=== PATIENT | male | born 1940 | race Caucasian/White ===

== ENCOUNTER 2016-03-28 | Outpatient (CLI) | payer MEDICARE, BC | END 2016-03-28 13:31 | disposition home or self-care (01) | DX: E11.8 Type 2 diabetes mellitus with unspecified complications (principal) ==

== ENCOUNTER 2016-04-09 | Emergency (ER) | payer MEDICARE, BC | END 2016-04-09 17:39 | disposition home or self-care (01) | PROC: 0WUF0JZ Supplement Abdominal Wall with Synthetic Substitute, Open Approach (ICD-10-PCS; principal; 2016-04-09) | CPT/HCPCS: 49585; 51702; 99282; 99283; A9270; C1781; J0131; J0690; J7120 ==

== ENCOUNTER 2016-04-09 06:14 | Day surgery (SDC) | payer MEDICARE, BC ==
[2016-04-09] MEDS ORDERED: ceFAZolin 2 GM/50 ML 50 ML IV ONE (06:27)
[2016-04-09] MEDS ORDERED: LACTATED RINGERS 1,000 ML IV ONE ×2 (07:02→09:20)
[2016-04-09] MEDS ORDERED: BUPIVACAINE 0.5% PF 30 ML VIAL SUBQ ONE ×2 (07:21→08:47)
[2016-04-09] MEDS ORDERED: GLYCOPYRROLATE 1 MG/5 ML VIAL IVP ONE (07:45)
[2016-04-09] MEDS ORDERED: NEOSTIGMINE 1 MG/1 ML 10 ML MDV IVP ONE (07:45)
[2016-04-09] MEDS ORDERED: ROCURONIUM 50 MG/5 ML VIAL IVP ONE (07:45)
[2016-04-09] MEDS ORDERED: LIDOCAINE-MPF 2% 5 ML VIAL IM ONE (07:45)
[2016-04-09] MEDS ORDERED: ACETAMINOPHEN 1,000 MG/100 ML VIAL IV ONE (07:45)
[2016-04-09] MEDS ORDERED: ONDANSETRON 4 MG/2 ML VIAL IVP ONE (07:45)
[2016-04-09] MEDS ORDERED: DEXAMETHASONE 4 MG/ML VIAL IVP ONE (07:45)
[2016-04-09] MEDS ORDERED: MIDAZOLAM 2 MG/2 ML VIAL IVP ONE (07:45)
[2016-04-09] MEDS ORDERED: fentaNYL 100 MCG/2 ML VIAL IVP ONE (07:45)
[2016-04-09] MEDS ORDERED: PROPOFOL 200 MG/20 ML VIAL IVP ONE (07:45)
[2016-04-09] MEDS: fentaNYL 100 MCG/2 ML VIAL ONE ×4 (09:28→09:48)
[2016-04-09] MEDS ORDERED: oxyCOD/ACETAMIN 5 MG/325 MG TABLET PO ONE ×2 (10:09→10:53)
== END 2016-04-09 06:15 | disposition home or self-care (01) ==
PROC: 0WUF0JZ Supplement Abdominal Wall with Synthetic Substitute, Open Approach (ICD-10-PCS; principal; 2016-04-09 07:30)
DX: K42.9 Umbilical hernia without obstruction or gangrene (principal); I48.91 Unspecified atrial fibrillation; E11.22 Type 2 diabetes mellitus with diabetic chronic kidney disease; I12.9 Hypertensive chronic kidney disease with stage 1 through stage 4 chronic kidney disease, or unspecified chronic kidney disease; N18.3 Chronic kidney disease, stage 3 (moderate); G47.30 Sleep apnea, unspecified
CPT/HCPCS: 49585; A9270; C1781; J0131; J0690; J7120

== ENCOUNTER 2016-04-24 14:41 | Outpatient (CLI) | payer MEDICARE, BC | END 2016-04-24 14:42 | disposition home or self-care (01) | DX: G47.33 Obstructive sleep apnea (adult) (pediatric) (principal) | CPT/HCPCS: 99214; G0463 ==

== ENCOUNTER 2017-03-18 12:00 | Outpatient (CLI) | payer MEDICARE, BC | END 2017-03-18 12:01 | disposition home or self-care (01) | LOC: LAB.WCP 12:00 | PROVIDERS: ATTEND Family Medicine | DX: Z12.5 Encounter for screening for malignant neoplasm of prostate (principal) | CPT/HCPCS: 36415; G0103; 84153 ==

== ENCOUNTER 2017-03-24 07:30 | Outpatient (CLI) | payer MEDICARE, BC ==
--- NOTE | 2017-03-24 09:49 | Ultrasound Report ---
DATE OF SERVICE: 03/24/2017 COMPLETE ABDOMINAL ULTRASOUND: 03/24/2017 CLINICAL INDICATION: Abnormal LFTs. TECHNIQUE: Real-time scanning was performed with sales representatives static images obtained. FINDINGS: The liver measures 15.7 cm. Hepatic echogenicity is increased, compatible with fatty infiltration. No focal parenchymal lesion or intrahepatic biliary dilatation is present. The common bile duct measures 7 mm. The gallbladder is normal, as is the visualized pancreas. The right kidney measures 11.6 cm, and demonstrates a 4.3 cm cyst in the upper pole. The left kidney measures 10.6 cm, and is unremarkable. The spleen measures 11.6 cm, and demonstrates normal echotexture. The abdominal aorta is normal in caliber. The inferior vena cava is unremarkable. No free fluid is present. IMPRESSION: FATTY INFILTRATION OF THE LIVER. NO EVIDENCE OF CHOLELITHIASIS OR BILIARY DILATATION. TD: 03/24/2017 10:49
== END 2017-03-24 07:31 | disposition home or self-care (01) ==
LOC: DI 07:30
PROVIDERS: ATTEND Internal Medicine Endocrinology, Diabetes & Metabolism
DX: K76.0 Fatty (change of) liver, not elsewhere classified (principal)
CPT/HCPCS: 76700

== ENCOUNTER 2017-04-29 13:37 | Outpatient (CLI) | payer MEDICARE, BC | END 2017-04-29 13:38 | disposition home or self-care (01) | LOC: SC 13:37 | PROVIDERS: ATTEND Nurse Practitioner Family | DX: G47.33 Obstructive sleep apnea (adult) (pediatric) (principal) | CPT/HCPCS: 99213; G0463; 99212 ==

== ENCOUNTER 2017-05-12 08:00 | Outpatient (CLI) | payer MEDICARE, BC | END 2017-05-12 08:01 | disposition home or self-care (01) | LOC: LAB.WCP 08:00 | PROVIDERS: ATTEND Urology | DX: R97.20 Elevated prostate specific antigen [PSA] (principal) | CPT/HCPCS: 36415; 84153 ==

== ENCOUNTER 2017-09-17 13:20 | Outpatient (CLI) | payer MEDICARE, BC ==
[2017-09-17 18:59] LABS: HGB - HEMOGLOBIN 12.3 g/dL (14.0-18.0); MEAN CORPUSCULAR HEMOGLOBIN 30.2 pg (27.0-31.0); MEAN CORPUSCULAR HGB CONC 33.2 g/dL (32.0-36.0); MEAN PLATELET VOLUME 10.4 fL (7.4-11.4); RED BLOOD COUNT 4.07 10^6/uL (4.70-6.10); WHITE BLOOD COUNT 5.2 x10^3/uL (4.8-10.8)
[2017-09-17 19:40] LABS: CREATININE,URINE 115.7 mg/dL; PROTEIN/CREATININE RATIO,URINE 0.1 (<=0.2)
== END 2017-09-17 13:21 | disposition home or self-care (01) ==
LOC: LAB.WCP 13:20
PROVIDERS: ATTEND Internal Medicine Nephrology
DX: D70.9 Neutropenia, unspecified (principal); R80.9 Proteinuria, unspecified; D63.1 Anemia in chronic kidney disease
CPT/HCPCS: 36415; 82570; 84156; 85027

== ENCOUNTER 2017-11-14 08:00 | Outpatient (CLI) | payer MEDICARE, BC | END 2017-11-14 08:01 | disposition home or self-care (01) | LOC: LAB.WCP 08:00 | PROVIDERS: ATTEND Urology | DX: C61 Malignant neoplasm of prostate (principal) | CPT/HCPCS: 36415; 84153 ==

== ENCOUNTER 2017-11-20 08:00 | Outpatient (CLI) | payer MEDICARE, BC ==
[2017-11-20 12:58] LABS: CALCIUM 9.2 mg/dL (8.5-10.3); CREATININE 1.4 mg/dL (0.6-1.2)
== END 2017-11-20 08:01 | disposition home or self-care (01) ==
LOC: LAB.WCP 08:00
PROVIDERS: ATTEND Internal Medicine Nephrology
DX: I50.32 Chronic diastolic (congestive) heart failure (principal); N05.9 Unspecified nephritic syndrome with unspecified morphologic changes
CPT/HCPCS: 36415; 80048; 83880

== ENCOUNTER 2017-12-11 10:18 | Outpatient (CLI) | payer MEDICARE, BC ==
[2017-12-11 13:09] LABS: CALCIUM 8.8 mg/dL (8.5-10.3); CREATININE 1.3 mg/dL (0.6-1.2)
== END 2017-12-11 10:19 | disposition home or self-care (01) ==
LOC: LAB.WCP 10:18
PROVIDERS: ATTEND Family Medicine
DX: I12.9 Hypertensive chronic kidney disease with stage 1 through stage 4 chronic kidney disease, or unspecified chronic kidney disease (principal); N18.3 Chronic kidney disease, stage 3 (moderate)
CPT/HCPCS: 36415; 80048

== ENCOUNTER 2017-12-18 09:46 | Outpatient (CLI) | payer MEDICARE, BC ==
--- NOTE | 2017-12-18 15:30 | Ultrasound Report ---
Reason: BLADDER OUTLET NECK OBSTRUCTION,ACUTE KIDNEY FAIL Procedure Date: 12/18/2017 Accession Number: [id number] / [id number] Procedure: US - Retroperitoneal CPT Code: FULL RESULT: EXAM: RENAL ULTRASOUND EXAM DATE: 12/18/2017 12:05 PM. CLINICAL HISTORY: Bladder outlet neck obstruction, acute kidney failure. COMPARISON: LUMBAR SPINE W/WO 12/18/2017 10:07 AM. TECHNIQUE: Real-time scanning was performed with static images obtained. FINDINGS: Right Kidney: 10.6 cm. Normal echotexture with no stones, contour-deforming solid masses, or hydronephrosis. Note is made of a simple cyst measuring up to 5 cm, no followup required. Left Kidney: 11.7 cm. Normal echotexture with no stones, contour-deforming masses, or hydronephrosis. Bladder: Bilateral jets seen. The prevoid bladder volume was 400 cc. The postvoid bladder volume was 30 cc. Bladder wall appears subjectively thickened. Other: The enlarged prostate is seen indenting the bladder and measures at least 6.5 x 6.3 x 5.1 cm. IMPRESSION: Prostatic hypertrophy and preserved jets compatible with bladder outlet obstruction with postvoid residual suggestive of effective active micturition. RADIA
== END 2017-12-18 09:47 | disposition home or self-care (01) ==
LOC: DI 09:46
PROVIDERS: ATTEND Internal Medicine Nephrology
DX: N32.0 Bladder-neck obstruction (principal); N17.9 Acute kidney failure, unspecified; N40.0 Benign prostatic hyperplasia without lower urinary tract symptoms
CPT/HCPCS: 76770

== ENCOUNTER 2017-12-18 09:48 | Outpatient (CLI) | payer MEDICARE, BC ==
[2017-12-18] MEDS ORDERED: GADOBUTROL 10 MMOL/10 ML VIAL ONE (10:01)
[2017-12-18] MEDS ORDERED: GADOBUTROL 10 MMOL/10 ML VIAL IVP ONE (10:28)
--- NOTE | 2017-12-18 22:08 | MRI Report ---
Reason: SCIATICA, RIGHT Procedure Date: 12/18/2017 Accession Number: [id number] / [id number] Procedure: MRI - Lumbar Spine W/WO CPT Code: FULL RESULT: EXAM: MRI LUMBAR SPINE WITHOUT AND WITH CONTRAST. EXAM DATE: 12/18/2017 10:53 AM. CLINICAL HISTORY: Sciatica, right. COMPARISONS: None. TECHNIQUE: Multiplanar, multisequence T1-weighted and fluid-sensitive sequences of the lumbar spine from T12 to S1 before and after administration of intravenous contrast. Other: None. IV contrast: 9 mL Gadavist. FINDINGS: There is straightening of the normal lumbar lordosis. There is endplate spondylosis demonstrated throughout the visualized portions of the thoracic and lumbar spine. The conus terminates at the inferior endplate level of L1. There is a mild decrease in the height of the disk at T9-T10, T10-T11, T11-T12, T12-L1, mild to moderate at L1-L2, moderate at L2-L3, mild to moderate at L3-L4 and L4-L5. There is diffuse desiccation of the disk spaces throughout the visualized portions of the thoracic and lumbar spine. There are multiple disk bulges or disk osteophyte complexes which will be described in greater detail below. There is no significant atrophy of the paraspinal musculature or the psoas musculature. The abdominal aorta is of normal caliber. The kidneys are without evidence of hydronephrosis. L1-L2: There is a small disk osteophyte complex producing a mild central canal stenosis. The facets are normal. There is mild neural foraminal narrowing bilaterally. L2-L3: There is a small disk osteophyte complex producing a mild central canal stenosis. There is mild bilateral facet arthropathy. There is mild to moderate right and left foraminal stenosis. L3-L4: There is a small disk osteophyte complex abutting the sac producing a mild central canal stenosis. There is mild ligamentum flavum hypertrophy. There is minimal facet arthropathy. There is mild to moderate neural foraminal narrowing bilaterally. L4-L5: There is a broad-based disk osteophyte complex abutting the sac. There is mild ligamentum flavum hypertrophy. There is a moderate central canal stenosis. There is moderate right and left foraminal stenosis. There is mild bilateral facet arthropathy. L5-S1: There is a minimal disk bulge abutting the sac without significant central canal stenosis. There is mild left and right facet arthropathy. There is no significant foraminal stenosis. The postcontrast T1-weighted images are normal. IMPRESSION: 1. There are mild central canal stenoses from small disk osteophyte complexes at L1-L2 and L2-L3. 2. There is a mild central canal stenosis from a small disk osteophyte complex at L3-L4. 3. There is a moderate central canal stenosis from a broad-based disk osteophyte complex at L4-L5 in combination with ligamentum flavum hypertrophy. 4. There is a minimal disk bulge without significant central canal stenosis at L5-S1. Comment: The following findings are so common in adults without low back pain that while we report their presence, they must be interpreted with caution and in the context of the clinical situation. (Reference Sameerak et al, Spine 2001) Prevalence of findings in patients without low back pain: Disk degeneration (any evidence): 92% Disk desiccation/T2 signal loss: 83% Disk height loss: 56% Disk bulge: 64% Disk protrusion: 32% Annular tear/high intensity zone: 38% RADIA
== END 2017-12-18 09:49 | disposition home or self-care (01) ==
LOC: DI 09:48
PROVIDERS: ATTEND Internal Medicine Endocrinology, Diabetes & Metabolism
DX: M51.16 Intervertebral disc disorders with radiculopathy, lumbar region (principal); M48.061 Spinal stenosis, lumbar region without neurogenic claudication; M25.78 Osteophyte, vertebrae; N32.0 Bladder-neck obstruction; N17.9 Acute kidney failure, unspecified; N40.0 Benign prostatic hyperplasia without lower urinary tract symptoms
CPT/HCPCS: 72158; 76770; A9585

== ENCOUNTER 2018-01-08 08:00 | Outpatient (CLI) | payer MEDICARE, BC ==
[2018-01-08 12:52] LABS: CALCIUM 9.5 mg/dL (8.5-10.3); CREATININE 1.3 mg/dL (0.6-1.2)
== END 2018-01-08 23:59 | disposition home or self-care (01) ==
LOC: LAB.WCP 08:00
PROVIDERS: ATTEND Internal Medicine Nephrology
DX: N05.9 Unspecified nephritic syndrome with unspecified morphologic changes (principal); I50.32 Chronic diastolic (congestive) heart failure
CPT/HCPCS: 36415; 80048; 83880

== ENCOUNTER 2018-04-03 08:00 | Outpatient (CLI) | payer MEDICARE, BC ==
[2018-04-03 13:38] LABS: BASOPHILS % (AUTO) 0.6 %; EOSINOPHILS # (AUTO) 0.1 10^3/uL (0.0-0.7); EOSINOPHILS % (AUTO) 3.2 %; HGB - HEMOGLOBIN 12.6 g/dL (14.0-18.0); LYMPHOCYTES # (AUTO) 0.8 10^3/uL (1.5-3.5); LYMPHOCYTES % (AUTO) 17.7 %; MEAN CORPUSCULAR HEMOGLOBIN 31.1 pg (27.0-31.0); MEAN CORPUSCULAR HGB CONC 34.7 g/dL (32.0-36.0); MEAN CORPUSCULAR VOLUME 89.8 fL (80.0-94.0); MEAN PLATELET VOLUME 9.8 fL (7.4-11.4); MONOCYTES # (AUTO) 0.4 10^3/uL (0.0-1.0); NEUTROPHILS % (AUTO) 68.5 %; PLT - PLATELET COUNT 141 10^3/uL (130-450); RED BLOOD COUNT 4.04 10^6/uL (4.70-6.10); RED CELL DISTRIBUTION WIDTH 14.7 % (12.0-15.0); WHITE BLOOD COUNT 4.4 x10^3/uL (4.8-10.8)
[2018-04-03 14:01] LABS: ALBUMIN 4.2 g/dL (3.2-5.5); ALBUMIN/GLOBULIN RATIO 1.7 (1.0-2.2); ALKALINE PHOSPHATASE 45 IU/L (42-121); ALT ALANINE AMINOTRANSFERASE 19 IU/L (10-60); AST ASPARTATE AMINOTRANSFERASE 37 IU/L (10-42); BILIRUBIN,TOTAL 0.6 mg/dL (0.2-1.0); BUN - BLOOD UREA NITROGEN 26 mg/dL (6-20); CALCIUM 9.2 mg/dL (8.5-10.3); CARBON DIOXIDE - CO2 26 mmol/L (21-32); CHLORIDE 104 mmol/L (101-111); CHOL/HDL RATIO 2.3 (<5.0); CHOLESTEROL 162 mg/dL; CREATININE 1.2 mg/dL (0.6-1.2); GFR - MDRD 59 (>89); GLUCOSE 114 mg/dL (70-100); HDL CHOLESTEROL 70 mg/dL; LDL CHOLESTEROL,CALCULATED 80 mg/dL; LDL/HDL RATIO 1.1 (<3.6); SODIUM 136 mmol/L (135-145); TOTAL PROTEIN 6.7 g/dL (6.7-8.2); VLDL CHOLESTEROL 12 mg/dL
[2018-04-03 14:30] LABS: FREE T4 (FREE THYROXINE) 0.8 ng/dL (0.58-1.64)
[2018-04-03 20:22] LABS: HB2 TOTAL 12.8 g/dL; HEMOGLOBIN A1C 0.62 g/dL; HEMOGLOBIN A1C % 6.6 % (4.6-6.2)
== END 2018-04-03 23:59 | disposition home or self-care (01) ==
LOC: LAB.WCP 08:00
PROVIDERS: ATTEND Family Medicine
DX: E78.5 Hyperlipidemia, unspecified (principal); E10.9 Type 1 diabetes mellitus without complications; E03.9 Hypothyroidism, unspecified; D64.9 Anemia, unspecified
CPT/HCPCS: 36415; 80053; 80061; 83036; 83721; 84439; 84443; 85025

== ENCOUNTER 2018-04-09 08:00 | Outpatient (CLI) | payer MEDICARE, BC ==
[2018-04-09 13:44] LABS: FREE T4 (FREE THYROXINE) 0.88 ng/dL (0.58-1.64)
== END 2018-04-09 23:59 | disposition home or self-care (01) ==
LOC: LAB.WCP 08:00
PROVIDERS: ATTEND Family Medicine
DX: E03.9 Hypothyroidism, unspecified (principal)
CPT/HCPCS: 36415; 84439; 84443

== ENCOUNTER 2018-04-29 15:12 | Outpatient (CLI) | payer MEDICARE, BC | END 2018-04-29 15:13 | disposition home or self-care (01) | LOC: SC 15:12 | PROVIDERS: ATTEND Nurse Practitioner Family | DX: G47.33 Obstructive sleep apnea (adult) (pediatric) (principal) | CPT/HCPCS: 99214; G0463; 99212 ==

== ENCOUNTER 2018-07-27 08:00 | Outpatient (CLI) | payer MEDICARE, BC | END 2018-07-27 08:01 | disposition home or self-care (01) | LOC: LAB.WCP 08:00 | PROVIDERS: ATTEND Urology | DX: Z85.46 Personal history of malignant neoplasm of prostate (principal) | CPT/HCPCS: 36415; 84153 ==

== ENCOUNTER 2018-09-04 08:00 | Outpatient (CLI) | payer MEDICARE, BC ==
[2018-09-04 13:05] LABS: CALCIUM 8.7 mg/dL (8.5-10.3); CREATININE 1.3 mg/dL (0.6-1.2)
== END 2018-09-04 08:01 | disposition home or self-care (01) ==
LOC: LAB.WCP 08:00
PROVIDERS: ATTEND Internal Medicine Nephrology
DX: N05.9 Unspecified nephritic syndrome with unspecified morphologic changes (principal); I50.32 Chronic diastolic (congestive) heart failure
CPT/HCPCS: 36415; 80048; 83880

== ENCOUNTER 2019-02-01 17:56 | Outpatient (CLI) | payer MEDICARE, BC ==
--- NOTE | 2019-02-01 18:46 | Ultrasound Report ---
Reason: LEFT LEG EDEMA Procedure Date: 02/01/2019 Accession Number: [id number] / [id number] Procedure: US - Duplex Ext Veins Left CPT Code: Addended Final Report FULL RESULT: EXAM: LEFT LOWER EXTREMITY VENOUS ULTRASOUND EXAM DATE: 02/01/2019 06:28 PM. CLINICAL HISTORY: LEFT LEG EDEMA. COMPARISON: None. TECHNIQUE: Real-time sonographic vascular imaging was performed by the employment agency manager through the lower extremity utilizing both color-flow and Doppler spectral analysis. Multiple loan representative static images were saved for review. FINDINGS: Common Femoral Vein (CFV): Normal. CFV-GSV Junction: Normal. Profunda Femoral Vein (PFV): Normal. Femoral Vein (FV) Prox: Normal. Femoral Vein (FV) Mid: Normal. Femoral Vein (FV) Dist: Normal. Popliteal Vein: Normal. Posterior Tibial Veins: Normal. Peroneal Veins: Normal. IMPRESSION: No evidence for deep venous thrombosis. RADIA The call report notification system was initiated by Dr. Juan Henry at 06:45 PM on 02/01/2019. ADDENDUM: 02/01/19 18:48 The above call report findings were discussed with MAHESH Hagen by Dr. Juan Henry at 06:48 PM on 02/01/2019.
== END 2019-02-01 17:57 | disposition home or self-care (01) ==
LOC: DI 17:56
PROVIDERS: ATTEND Physician Assistant
DX: R60.0 Localized edema (principal)

== ENCOUNTER 2019-02-07 14:20 | Outpatient (CLI) | payer MEDICARE, BC | END 2019-02-07 23:59 | disposition home or self-care (01) | LOC: LAB.R 14:20 | DX: R19.7 Diarrhea, unspecified (principal) | CPT/HCPCS: 87045; 87046; 87493 ==

== ENCOUNTER 2019-02-08 08:00 | Outpatient (CLI) | payer MEDICARE, BC ==
[2019-02-08 19:14] LABS: BASOPHILS % (AUTO) 0.2 %; EOSINOPHILS # (AUTO) 0.1 10^3/uL (0.0-0.7); EOSINOPHILS % (AUTO) 2.1 %; HGB - HEMOGLOBIN 9.7 g/dL (14.0-18.0); LYMPHOCYTES # (AUTO) 0.6 10^3/uL (1.5-3.5); LYMPHOCYTES % (AUTO) 10.6 %; MEAN CORPUSCULAR HEMOGLOBIN 29.8 pg (27.0-31.0); MEAN CORPUSCULAR HGB CONC 30.8 g/dL (32.0-36.0); MEAN CORPUSCULAR VOLUME 96.6 fL (80.0-94.0); MEAN PLATELET VOLUME 11.5 fL (7.4-11.4); MONOCYTES # (AUTO) 0.4 10^3/uL (0.0-1.0); MONOCYTES % (AUTO) 7.2 %; NEUTROPHILS # (AUTO) 4.2 10^3/uL (1.5-6.6); NEUTROPHILS % (AUTO) 79.3 %; PLT - PLATELET COUNT 173 10^3/uL (130-450); RED BLOOD COUNT 3.26 10^6/uL (4.70-6.10); RED CELL DISTRIBUTION WIDTH 14.3 % (12.0-15.0); WHITE BLOOD COUNT 5.3 x10^3/uL (4.8-10.8)
[2019-02-08 19:44] LABS: ALBUMIN 3.8 g/dL (3.2-5.5); ALBUMIN/GLOBULIN RATIO 1.2 (1.0-2.2); BILIRUBIN,TOTAL 0.5 mg/dL (0.2-1.0); CALCIUM 9.2 mg/dL (8.5-10.3); CREATININE 1.3 mg/dL (0.6-1.2); TOTAL PROTEIN 7.1 g/dL (6.7-8.2)
[2019-02-08 21:00] LABS: FREE T4 (FREE THYROXINE) 0.71 ng/dL (0.58-1.64)
== END 2019-02-08 23:59 | disposition home or self-care (01) ==
LOC: LAB.WCP 08:00
PROVIDERS: ATTEND Physician Assistant
DX: I10 Essential (primary) hypertension (principal); E03.9 Hypothyroidism, unspecified; E10.9 Type 1 diabetes mellitus without complications
CPT/HCPCS: 36415; 80053; 84439; 84443; 85025; 85651

== ENCOUNTER 2019-02-09 12:54 | Outpatient (CLI) | payer MEDICARE, BC ==
--- NOTE | 2019-02-09 15:24 | Ultrasound Report ---
Reason: LT ACHILLES TENDINITIS Procedure Date: 02/09/2019 Accession Number: [id number] / [id number] Procedure: US - Ext Limited Non Vascular CPT Code: Final Report FULL RESULT: EXAM: EXTREMITY ULTRASOUND, NONVASCULAR EXAM DATE: 02/09/2019 02:38 PM. CLINICAL HISTORY: Acute onset left calf pain and swelling. COMPARISON: None. TECHNIQUE: Real-time scanning was performed with static images obtained. FINDINGS: Moderate diffuse soft tissue swelling and skin thickening is present in the left lower extremity. The Achilles tendon is visualized in full extent. The tendon is homogeneous in echotexture and normal in caliber. There is no apparent disruption. There is no focal enlargement or neovascularity. IMPRESSION: 1. No sonographic features of Achilles tendon rupture or tendinopathy. 2. Diffuse calf edema and skin thickening. RADIA The call report notification system was initiated by Dr. Mya Dye at 03:23 PM on 02/09/2019.
== END 2019-02-09 12:55 | disposition home or self-care (01) ==
LOC: DI 12:54
PROVIDERS: ATTEND Physician Assistant
DX: M76.62 Achilles tendinitis, left leg (principal); R60.0 Localized edema
CPT/HCPCS: 76882

== ENCOUNTER 2019-02-10 08:00 | Outpatient (CLI) | payer MEDICARE, BC | END 2019-02-10 23:59 | disposition home or self-care (01) | LOC: LAB.R 08:00 | PROVIDERS: ATTEND Physician Assistant | DX: R19.7 Diarrhea, unspecified (principal) | CPT/HCPCS: 87045; 87046; 87177; 87209 ==

== ENCOUNTER 2019-04-27 08:31 | Outpatient (CLI) | payer MEDICARE, BC ==
--- NOTE | 2019-04-27 09:39 | SLEEP CARE CONSULTATION ---
Information from patient questionnaire entered by Philomena Galloway. I have reviewed and concur with the information entered by Philomena Galloway. This document represents the service I personally performed and the decisions made by me, Shilpa Victor, RN, MSN, HEARING AID ASSEMBLY SUPERVISOR. History of Present Illness Previous diagnosis: Moderate, Obstructive Sleep Apnea-Hypopnea Syndrome AHI: 21 Reason for follow up: annual (last seen 2019) Equipment type: CPAP Equipment obtained from: [facility] Mask style: Nasal (Air fit N20) Mask brand: Resmed Backup mask available: Yes (old mask ) Last cushion change: 8 months CPAP Compliance Data - Data Reviewed with Patient Average duration of nightly device use: 7.25 Compliance rate %: 95.6 (180 days) Current pressure setting (cmH2O): 10-12 Humidity settin Heated hose settin Average residual AHI: 3.3 Average large leak: 11 sec Subjective Patient concerns: reports: mask discomfort ("Hates'" mask due to discomfort and eye leaks ), air blowing in eyes (intermittently - no eye irritation at this time. ), dry mouth, nose, throat (nose dryness occasionally - none now - but usually present in colder weather ), epistaxis (occasionally - last time with cold the past month ), other (spouse notices gurgling noise occasionally when he is supine only ). denies: aerophagia, mask leak noise, condensation in mask/hose, nasal congestion Observed to snore while using device: No On therapy, patient: reports: sleeping better, awakening more refreshed, being more awake and alert during the day, more rested overall (except extra fatigue due to radiation treatments) Initial Gove Sleepiness Scale score: 7 Current Gove Sleepiness Scale score: 13 Allergies and Home Medications Known drug allergies: Yes Home medication list reviewed: Yes Allergy and home medication list: Medication List Medication Name (generic/name brand) Strength & Dosage Hydralazine HCL 50mg tab one three times daily Zocor (Simvastatin) 20mg tab one daily at bedtime Tamsulosin HCL 0.4mg cap one daily Humalog 100 unit/ml SQ Solution Use with insulin pump Aricept (Donepezil Hydrochloride) 10mg tab one daily at bedtime Levothyroxine Sodium 125 mcg tab one daily Hyzaar (Losartan Potassium-HCTZ) 100-25mg tab one every morning Prazosin HCL 2mg cap two twice daily Metanx (W-Peqiadjrgfns-Qjbzj-B12-B6) 3-90.314-2-35mg cap two daily Aspirin 81mg tab one daily Omeprazole DR 40mg cap one daily Ceterizine (Zyrtec) 10mg tab one daily Vitamin D3 1000IU tab one daily Multivitamin Cap one daily Grape Seed and Reveratrol 235mg tab one up to four times daily, prn Vitamin E 1000IU cap 1 am and 1 pm Allergy List Flagyl Zestril (Lisinopril) Penicillin G Potassium Guiafenesin Review of Systems Review of systems same as previous: No (Radiation for prostrate cancer Nov / Dec with notable increase in fatigue) Physical Exam Blood Pressure: 140/50 Cuff size: long Heart Rate: 78 O2 Saturation: 97 Height: 5 ft 7 in Weight: 194 lb Weight change since last visit: none Body Mass Index: 30.4 BMI Classification: Obese Impression and Plan 1. Obstructive Sleep Apnea-Hypopnea Syndrome, moderate, with good treatment compliance and good apnea control. On CPAP therapy, the patient has better sleep quality and is more rested overall but has had increase in fatigue since radiation treatment for prostate cancer. Questions about supplies and replacement were answered. In addition, I gave patient a copy of the CPAP supply replacement schedule and discussed rationale for updating equipment. He is going down to [facility] today after this visit to order in person due to problems with their automotive system. For patient supply concerns. Patient was notified that another DME can be used if desired and unable to work out concerns with present DME. I will have my bereavement program coordinator inform of DME options. A DWO prescription will then be made if he decides to transfer. Patient advised to contact this office if further supply problems. His mask leaks could be due to old cushion, if still present after updating cushion, a mask refitting will be ordered. The mask leaks are present whether on his side or supine per patient. Mask leaks predominately from when patient sleeps on their side can be reduced by using a CPAP pillow. A CPAP pillow sample was shown. This and other styles can be bought online. A cloth eye mask can also be used to protect eyes until mask is no longer leaking to prevent eye irritation. Nasal dryness from colder chip drier weather can be reduced with increasing the CPAP humidity as shown on sample device and the heated hose can be increased if condensation. In addition, he can use saline nasal spray a few times a day when dryness symptoms such as after meal and before bedtime. To reduce possible apnea noted in supine position, I will change his autoCPAP range to [id number]. He is to contact me if symptoms not resolved or pressure not comfortable. Patient's apnea severity and rationale for treatment to reduce apnea, improve sleep quality and reduce cardiovascular and cerebrovascular events was reviewed. I also reviewed the benefit of consistent device use of CPAP for his hypertension, diabetes,gastric reflux. Patient states his diabetes is now brittle and now using continuous monitoring. He took his blood sugar reading during this visit and was low at 64 so ate a snack which he keeps in his monica pack carries during office visit. * Change CPAP pressure to 11-15 cmH2O * Implement methods to reduce mask leaks and nasal dryness. * Contact this office if continued suppy problems * Notify me if snoring with mask or feeling that the pressure is too much or too little * Attempt to lose weight * Call this office if any problems using CPAP * Return for follow up in 1 year , or sooner if concerns arise Time Spent with Patient (minutes): 40 I spent 100% of this visit face to face with the patient with greater than 50% of this was spent time counseling the patient and coordination of care.
[2019-04-27 09:40] VITALS: BP 140/50
== END 2019-04-27 08:32 | disposition home or self-care (01) ==
LOC: SC 08:31
PROVIDERS: ATTEND Nurse Practitioner Family
DX: G47.33 Obstructive sleep apnea (adult) (pediatric) (principal); E66.9 Obesity, unspecified; Z68.30 Body mass index [BMI] 30.0-30.9, adult
CPT/HCPCS: 99215; G0463; 99212

== ENCOUNTER 2019-08-31 15:06 | Outpatient (CLI) | payer MEDICARE, BC ==
--- NOTE | 2019-08-31 17:39 | XRAY Report ---
Reason: BILATERAL HAND PAIN Procedure Date: 08/31/2019 Accession Number: [id number] / [id number] Procedure: WCP - Hand 2 View BILAT CPT Code: Final Report FULL RESULT: PROCEDURE: Hand 2 View BILAT INDICATIONS: BILATERAL HAND PAIN TECHNIQUE: 3 views of the hand(s) acquired. COMPARISON: None FINDINGS: Bones: No fractures or dislocations. No suspicious bony lesions. The scattered areas of periarticular osteophytes are present. Periarticular lucencies are present at multiple digits of the PIP and DIP joints. The left hand also demonstrates areas of moderate IP degenerative narrowing. Multiple periarticular lucencies are present at the PIP and DIP joints. Small areas of IP subluxation are noted at the third DIP joint. Right hand demonstrates moderate scattered areas of IP degenerative narrowing Soft tissues: No suspicious soft tissue calcifications. IMPRESSION: Multiple areas of IP degenerative narrowing as well as areas of subchondral lucency raising concern for erosion. Recommend correlation to laboratory values as erosive arthritides cannot be excluded. Reviewed by: Keri Mina MD on 08/31/2019 5:37 PM PDT Approved by: Keri Mina MD on 08/31/2019 5:37 PM PDT Station ID: [id number]
[2019-08-31 18:29] LABS: MEAN CORPUSCULAR HEMOGLOBIN 28.9 pg (27.0-31.0); MEAN CORPUSCULAR HGB CONC 31.3 g/dL (32.0-36.0); MEAN CORPUSCULAR VOLUME 92.6 fL (80.0-94.0); MEAN PLATELET VOLUME 11.9 fL (7.4-11.4); RED BLOOD COUNT 3.11 10^6/uL (4.70-6.10); RED CELL DISTRIBUTION WIDTH 13.9 % (12.0-15.0); WHITE BLOOD COUNT 4.8 x10^3/uL (4.8-10.8)
[2019-08-31 19:00] LABS: URIC ACID 4.8 mg/dL (2.6-7.2)
[2019-08-31 19:02] LABS: RHEUMATOID FACTOR NEGATIVE (Negative)
[2019-08-31 19:11] LABS: CRP - C-REACTIVE PROTEIN < 1.0 mg/dL (0-1.0)
== END 2019-08-31 23:59 | disposition home or self-care (01) ==
LOC: DI.WCP 15:06
PROVIDERS: ATTEND Nurse Practitioner Family
DX: M19.041 Primary osteoarthritis, right hand (principal); M19.042 Primary osteoarthritis, left hand; M25.541 Pain in joints of right hand; M25.542 Pain in joints of left hand
CPT/HCPCS: 36415; 84550; 85027; 85651; 86038; 86140; 86200; 86430

== ENCOUNTER 2019-09-03 09:43 | Outpatient (CLI) | payer MEDICARE, BC ==
[2019-09-03 12:19] LABS: BASOPHILS % (AUTO) 0.2 %; EOSINOPHILS # (AUTO) 0.1 10^3/uL (0.0-0.7); EOSINOPHILS % (AUTO) 3.5 %; HGB - HEMOGLOBIN 9.1 g/dL (14.0-18.0); LYMPHOCYTES # (AUTO) 0.5 10^3/uL (1.5-3.5); LYMPHOCYTES % (AUTO) 13.1 %; MEAN CORPUSCULAR HEMOGLOBIN 28.8 pg (27.0-31.0); MEAN CORPUSCULAR HGB CONC 30.5 g/dL (32.0-36.0); MEAN CORPUSCULAR VOLUME 94.3 fL (80.0-94.0); MEAN PLATELET VOLUME 11.9 fL (7.4-11.4); MONOCYTES # (AUTO) 0.4 10^3/uL (0.0-1.0); MONOCYTES % (AUTO) 10.1 %; NEUTROPHILS % (AUTO) 72.9 %; PLT - PLATELET COUNT 129 10^3/uL (130-450); RED BLOOD COUNT 3.16 10^6/uL (4.70-6.10); RED CELL DISTRIBUTION WIDTH 13.8 % (12.0-15.0); WHITE BLOOD COUNT 4.1 x10^3/uL (4.8-10.8)
[2019-09-03 13:10] LABS: % IRON SATURATION 24 % (20-50); IRON 62 ug/dL (45-182); TOTAL IRON BINDING CAPACITY 263 ug/dL (250-450); TRANSFERRIN 188 mg/dL (180-329)
[2019-09-03 13:14] LABS: FERRITIN 56.1 ng/mL (23.9-336.2)
[2019-09-03 13:58] LABS: FOLATE > 49.60 ng/mL (5.90 - >24.8)
== END 2019-09-03 23:59 | disposition home or self-care (01) ==
LOC: LAB.WCP 09:43
PROVIDERS: ATTEND Nurse Practitioner Family
DX: D64.9 Anemia, unspecified (principal)
CPT/HCPCS: 36415; 82607; 82728; 82746; 83540; 84466; 85025; 85045

== ENCOUNTER 2019-09-12 20:36 | Emergency (ER) | payer MEDICARE, BC ==
[2019-09-12] MEDS ORDERED: TETANUS/DIPHTHERIA/PERTUSSIS 0.5 ML SYRINGE IM ONE (21:02)
[2019-09-12] MEDS ORDERED: BUFFERED LIDOCAINE 10 ML SYRINGE SUBQ STA (21:14)
[2019-09-12] MEDS ORDERED: CEPHALEXIN 250 MG Prepack 8 CAP BOTTLE PO STA (21:15)
--- NOTE | 2019-09-12 21:15 | ED Physician Documentation ---
PD HPI UPPER EXT INJURY - Stated complaint Stated Complaint: RT HAND INJ/DIABETIC - Chief complaint Chief Complaint: Laceration - History obtained from History obtained from: Patient (79-year-old diabetic male with unknown tetanus status was lowering his flag tonight and cut himself on the right hand on a sharp edge. No other injuries.) Review of Systems Constitutional: reports: Reviewed and negative Throat: reports: Reviewed and negative Cardiac: reports: Reviewed and negative Respiratory: reports: Reviewed and negative PD PAST MEDICAL HISTORY - Past Medical History Past Medical History: Yes Cardiovascular: Hypertension Respiratory: Sleep apnea, CPAP use Endocrine/Autoimmune: Type 1 diabetes, HyPOthyroidism GI: None : None HEENT: None Psych: None Musculoskeletal: None Derm: None - Past Surgical History Past Surgical History: Yes General: Appendectomy, Colonoscopy HEENT: Cataracts, Tonsil/Adenoidectomy - Present Medications Home Medications: Ambulatory Orders Medication Instructions Recorded Confirmed Donepezil HCl [Aricept] 10 mg PO DAILY 07/12/13 09/12/19 Insulin Aspart [NovoLOG] 100 unit SQ DAILY 07/12/13 09/12/19 Levothyroxine [Synthroid] 125 mg PO DAILY 07/12/13 09/12/19 Losartan/Hydrochlorothiazide 1 tab PO DAILY 07/12/13 09/12/19 [Hyzaar 100-25 Tablet] Aspirin 81 mg PO DAILY 07/13/13 09/12/19 Amlodipine Besylate 10 mg PO DAILY 03/28/16 09/12/19 Cetirizine HCl 10 mg PO PRN PRN 03/28/16 09/12/19 Cholecalciferol (Vitamin D3) 1 cap PO DAILY 03/28/16 09/12/19 [Vitamin D3] Levomefolate/B6/B12/Algal Oil 1 cap PO BID 03/28/16 09/12/19 [Foltanx Rf Capsule] Multivitamin [Multiple Vitamins] 1 tab PO DAILY 03/28/16 09/12/19 Simvastatin [Zocor] 20 mg PO DAILY 03/28/16 09/12/19 Tamsulosin [Flomax] 0.4 mg PO DAILY 03/28/16 09/12/19 Cephalexin [Keflex] 500 mg PO Q6H #12 capsule 09/12/19 - Allergies Allergies/Adverse Reactions: Allergies Allergy/AdvReac Type Severity Reaction Status Date / Time Penicillins Allergy Severe Hives Verified 09/12/19 20:44 lisinopril Allergy Intermediate cough Verified 09/12/19 20:44 guaifenesin Allergy Unknown Hives Verified 09/12/19 20:44 metronidazole [From Flagyl] Allergy Unknown Itching Verified 09/12/19 20:44 Metronidazole HCl * Allergy Unknown Unknown Verified 09/12/19 20:44 [From Flagyl] - Social History Does the pt smoke?: No Smoking Status: Never smoker Does the pt drink ETOH?: No Does the pt have substance abuse?: No - Immunizations Immunizations are current?: Yes - POLST Patient has POLST: No PD ED PE NORMAL - Vitals Vital signs reviewed: Yes - General General: Alert and oriented X 3, No acute distress - Extremities Extremities: Other (There is a 1 cm laceration at the base of the thumb on the palmar side. Just into subcutaneous fat. No apparent tendon involvement. Normal distal neurovascular function.) - Neuro Neuro: Alert and oriented X 3, Normal speech Results - Vitals Vitals: Vital Signs - 24 hr 09/12/19 20:44 Temperature 36.5 C Heart Rate 60 Respiratory 16 Rate Blood Pressure 152/60 H O2 Saturation 98 Oxygen O2 Source Room air Procedures - Laceration (location) R hand Length in cm: 1 Wound type: Linear, Into subcut fat Neurovascular status: Sensory intact, Motor intact, Vascular intact Tendon involvement: Tendon intact Anesthesia: Lidocaine 1%, With bicarb Wound Preparation: Irrigated copiously NS Skin layer closure: Nylon, Interrupted, Size #-0 - enter number (4-0), Sutures - enter # (3) Other: Patient tolerated well, No complications, Neurovascular intact, Tetanus booster given Complexity: Simple Departure - Departure Disposition: 01 Home, Self Care Clinical Impression: Laceration Condition: Good Record reviewed to determine appropriate education?: Yes Instructions: ED Laceration Hand Prescriptions: Cephalexin [Keflex] 500 mg PO Q6H #12 capsule Comments: Come back for any signs of infection which would include: Redness, swelling, drainage, increased pain, or fevers. You can wash it soap and water. Keep it covered and moist with bacitracin ointment which is available over the counter; avoid neosporin. Follow-up with your physician in about 14 days for suture removal.
[2019-09-12 22:07] VITALS: BP 138/51
== END 2019-09-12 22:00 | disposition home or self-care (01) ==
LOC: ED 20:36
DX: S61.411A Laceration without foreign body of right hand, initial encounter (principal); W26.8XXA Contact with other sharp object(s), not elsewhere classified, initial encounter; Y93.89 Activity, other specified; Z23 Encounter for immunization; E10.9 Type 1 diabetes mellitus without complications; I10 Essential (primary) hypertension
CPT/HCPCS: 12001; 90471; 99283

== ENCOUNTER 2020-03-01 08:00 | Outpatient (CLI) | payer MEDICARE, BC ==
[2020-03-01 18:04] LABS: BASOPHILS % (AUTO) 0.4 %; EOSINOPHILS # (AUTO) 0.2 10^3/uL (0.0-0.7); HGB - HEMOGLOBIN 9.3 g/dL (14.0-18.0); LYMPHOCYTES # (AUTO) 0.6 10^3/uL (1.5-3.5); LYMPHOCYTES % (AUTO) 11.1 %; MEAN CORPUSCULAR HEMOGLOBIN 29.7 pg (27.0-31.0); MEAN CORPUSCULAR HGB CONC 30.5 g/dL (32.0-36.0); MEAN CORPUSCULAR VOLUME 97.4 fL (80.0-94.0); MEAN PLATELET VOLUME 11.9 fL (7.4-11.4); MONOCYTES # (AUTO) 0.4 10^3/uL (0.0-1.0); NEUTROPHILS # (AUTO) 4.2 10^3/uL (1.5-6.6); NEUTROPHILS % (AUTO) 76.1 %; PLT - PLATELET COUNT 123 10^3/uL (130-450); RED BLOOD COUNT 3.13 10^6/uL (4.70-6.10); RED CELL DISTRIBUTION WIDTH 13.6 % (12.0-15.0); WHITE BLOOD COUNT 5.5 x10^3/uL (4.8-10.8)
[2020-03-01 18:51] LABS: % IRON SATURATION 23 % (20-50); ALBUMIN 4.1 g/dL (3.2-5.5); ALBUMIN/GLOBULIN RATIO 1.4 (1.0-2.2); ALKALINE PHOSPHATASE 42 IU/L (42-121); ALT ALANINE AMINOTRANSFERASE 15 IU/L (10-60); AST ASPARTATE AMINOTRANSFERASE 28 IU/L (10-42); BILIRUBIN,TOTAL 0.5 mg/dL (0.2-1.0); BUN - BLOOD UREA NITROGEN 34 mg/dL (6-20); CALCIUM 9.2 mg/dL (8.5-10.3); CARBON DIOXIDE - CO2 24 mmol/L (21-32); CHLORIDE 106 mmol/L (101-111); CHOL/HDL RATIO 2.2 (<5.0); CHOLESTEROL 145 mg/dL; CREATININE 1.2 mg/dL (0.6-1.2); HDL CHOLESTEROL 66 mg/dL; IRON 67 ug/dL (45-182); LDL CHOLESTEROL,CALCULATED 62 mg/dL; LDL/HDL RATIO 0.9 (<3.6); SODIUM 139 mmol/L (135-145); TOTAL IRON BINDING CAPACITY 297 ug/dL (250-450); TOTAL PROTEIN 7.1 g/dL (6.7-8.2); TRANSFERRIN 212 mg/dL (180-329); VLDL CHOLESTEROL 17 mg/dL
[2020-03-01 18:58] LABS: FERRITIN 39.4 ng/mL (23.9-336.2)
[2020-03-01 19:09] LABS: GLUCOSE 53 mg/dL (70-100)
[2020-03-01 21:06] LABS: HEMOGLOBIN A1c% 6.1 % (4.27-6.07)
== END 2020-03-01 23:59 | disposition home or self-care (01) ==
LOC: LAB.WCP 08:00
PROVIDERS: ATTEND Family Medicine
DX: I10 Essential (primary) hypertension (principal); E78.5 Hyperlipidemia, unspecified; D64.9 Anemia, unspecified; E10.9 Type 1 diabetes mellitus without complications; E03.9 Hypothyroidism, unspecified
CPT/HCPCS: 36415; 80053; 80061; 82607; 82728; 83036; 83540; 83721; 84443; 84466; 85025

== ENCOUNTER 2020-04-04 06:30 | Day surgery (SDC) | payer MEDICARE, BC ==
[2020-04-04] MEDS ORDERED: LACTATED RINGERS 1,000 ML IV ONE (07:11)
[2020-04-04] MEDS ORDERED: MIDAZOLAM 2 MG/2 ML VIAL ONE (07:33)
[2020-04-04] MEDS ORDERED: fentaNYL 250 MCG/5 ML VIAL ONE (07:34)
[2020-04-04 13:35] VITALS: BP 167/54
== END 2020-04-04 06:31 | disposition home or self-care (01) ==
LOC: SDS 06:30
PROVIDERS: ATTEND Surgery
PROC: 0DBE8ZX Excision of Large Intestine, Via Natural or Artificial Opening Endoscopic, Diagnostic (ICD-10-PCS; 2020-04-04)
PROC: 0DBP8ZX Excision of Rectum, Via Natural or Artificial Opening Endoscopic, Diagnostic (ICD-10-PCS; principal; 2020-04-04 07:30)
DX: K62.5 Hemorrhage of anus and rectum (principal); K62.89 Other specified diseases of anus and rectum; K52.9 Noninfective gastroenteritis and colitis, unspecified; D64.9 Anemia, unspecified; C61 Malignant neoplasm of prostate; I10 Essential (primary) hypertension; E78.5 Hyperlipidemia, unspecified; E11.319 Type 2 diabetes mellitus with unspecified diabetic retinopathy without macular edema; E03.9 Hypothyroidism, unspecified; G47.30 Sleep apnea, unspecified; I48.91 Unspecified atrial fibrillation; Z92.3 Personal history of irradiation; Z86.73 Personal history of transient ischemic attack (TIA), and cerebral infarction without residual deficits; Z79.82 Long term (current) use of aspirin; Z79.4 Long term (current) use of insulin
CPT/HCPCS: 45380; J3010; J7120

== ENCOUNTER 2020-05-01 11:58 | Emergency (ER) | payer MEDICARE, BC ==
--- NOTE | 2020-05-01 12:50 | ED Physician Documentation ---
History of Present Illness - Stated complaint Stated Complaint: SWOLLEN EYES & ANKLES, RECTAL BLEEDING - Chief complaint Chief Complaint: Allergic Rx - Additonal information Additional information: 79-year-old male presents emergency department for evaluation of swelling of his bilateral lower extremities and around his eyes. He reports that he has been Administering hydrocortisone enemas for rectal proctitis. This has been occurring now for 18 days. This was ordered under the advisement of Dr. James Mcgee who diagnosed rectal proctitis after radiation surgery on a colonoscopy recently. However he does have a history of hypertension type 1 diabetes as well as a history of renal failure associated with the diabetes. However he has never required hemodialysis. He denies any chest pain or shortness of breath. No crackles or wheeze. He is on a vascular ultrasound technician noted to have very low rate in the 40s but reports that he always has a low heart rate. He also has multiple PVCs and states that he has been told that he has this before and is not aware of them. Review of Systems Constitutional: denies: Fever, Chills Eyes: reports: Other (periorbital swelling). denies: Loss of vision, Decreased vision Ears: reports: Reviewed and negative Nose: reports: Reviewed and negative Throat: reports: Reviewed and negative Cardiac: reports: Pedal edema. denies: Chest pain / pressure, Palpitations, Calf pain Respiratory: denies: Dyspnea, Cough, Hemoptysis, Wheezing GI: denies: Abdominal Pain, Abdominal Swelling, Nausea, Vomiting : reports: Other (hx of prostate cancern s/p radiation 1 year ago). denies: Dysuria, Hematuria Skin: denies: Rash, Lesions Musculoskeletal: reports: Extremity swelling (BLE). denies: Neck pain, Back pain, Extremity pain, Joint pain, Joint swelling, Pain with weight bearing Neurologic: denies: Generalized weakness, Numbness, Near syncope, Seizure, Confused, Altered mental status, Headache, Head injury Endocrine: denies: Polydypsia, Polyuria PD PAST MEDICAL HISTORY - Past Medical History Past Medical History: Yes Cardiovascular: Hypertension, Atrial fibrillation Respiratory: None Endocrine/Autoimmune: Type 1 diabetes, HyPOthyroidism GI: GI bleed, Chronic diarrhea : None HEENT: None Psych: None Musculoskeletal: None Derm: None - Past Surgical History Past Surgical History: Yes General: Appendectomy, Colonoscopy Ortho: Other HEENT: Cataracts, Tonsil/Adenoidectomy - Present Medications Home Medications: Ambulatory Orders Medication Instructions Recorded Confirmed Donepezil HCl [Aricept] 10 mg PO DAILY 07/12/13 05/01/20 Insulin Aspart [NovoLOG] 100 unit SQ DAILY 07/12/13 09/12/19 Levothyroxine [Synthroid] 125 mg PO DAILY 07/12/13 05/01/20 Losartan/Hydrochlorothiazide 1 tab PO DAILY 07/12/13 05/01/20 [Hyzaar 100-25 Tablet] Amlodipine Besylate 10 mg PO DAILY 03/28/16 05/01/20 Cetirizine HCl 10 mg PO PRN PRN 03/28/16 05/01/20 Cholecalciferol (Vitamin D3) 1 cap PO DAILY 03/28/16 05/01/20 [Vitamin D3] Levomefolate/B6/B12/Algal Oil 1 cap PO BID 03/28/16 05/01/20 [Foltanx Rf Capsule] Multivitamin [Multiple Vitamins] 1 tab PO DAILY 03/28/16 05/01/20 Simvastatin [Zocor] 20 mg PO DAILY 03/28/16 05/01/20 Tamsulosin [Flomax] 0.4 mg PO DAILY 03/28/16 05/01/20 Furosemide [Lasix] 20 mg PO DAILY 2 Days #2 05/01/20 Hydrocortisone Acetate 60 mg .ROUTE DAILY 05/01/20 05/01/20 Levomefolate/B6/B12/Algal Oil 2 cap PO DAILY 05/01/20 05/01/20 [Metanx Capsule] Omeprazole 40 mg PO DAILY 05/01/20 05/01/20 Prazosin [Minipress] 2 mg PO BID 05/01/20 05/01/20 Triamcinolone 0.1% Cream [Kenalog 1 applic .ROUTE PRN PRN 05/01/20 05/01/20 0.1% Cream] hydrALAZINE [Apresoline] 40 mg PO QID 05/01/20 05/01/20 - Allergies Allergies/Adverse Reactions: Allergies Allergy/AdvReac Type Severity Reaction Status Date / Time Penicillins Allergy Severe Hives Verified 05/01/20 12:15 lisinopril Allergy Intermediate cough Verified 05/01/20 12:15 guaifenesin Allergy Unknown Hives Verified 05/01/20 12:15 metronidazole [From Flagyl] Allergy Unknown Itching Verified 05/01/20 12:15 Metronidazole HCl * Allergy Unknown Unknown Verified 05/01/20 12:15 [From Flagyl] - Social History Does the pt smoke?: No Smoking Status: Never smoker Does the pt drink ETOH?: No Does the pt have substance abuse?: No - Immunizations Immunizations are current?: Yes - POLST Patient has POLST: No PD ED PE EXPANDED - General General: Alert, No acute distress, Well developed/nourished - HEENT HEENT: PERRL, EOMI, Other (Mild periorbital edema bilaterally) - Neck Neck: Supple w/out meningeal sx, No tenderness. No: Adenopathy - Cardiac Cardiac: Jair, Radial strong equal, Pedal strong equal, Cap refill < 2 sec. No: Murmur Present - Respiratory Respiratory: Clear to ausultation hansel. No: Distress, Labored, Wheezing, Rhonchi - Abdomen Abdomen: Normal Bowel sounds. No: Tender to palpation - Derm Derm: Normal color, Warm and dry - Extremities Extremities: Pedal edema bilateral (Bilateral pedal edema extending to mid calf to plus pitting. No erythema. No posterior calf tenderness bilaterally.). No: Deformity, Tenderness - Neuro Neuro: Alert and Oriented X 3, CNII-XII intact, Normal gait, Normal finger nose, Normal speech - GCS Eye Opening: Spontaneous Motor: Obeys Commands Verbal: Oriented Total: 15 Results - Vitals Vitals: Vital Signs - 24 hr 05/01/20 05/01/20 05/01/20 12:11 12:15 13:18 Temperature 97.7 C H Heart Rate 48 L 47 L 45 L Respiratory 16 20 24 Rate Blood Pressure 182/69 H 164/58 H 182/56 H O2 Saturation 100 100 100 Oxygen O2 Source Room air - EKG (time done) 1233 Rate: Rate (enter#) (44) Rhythm: Sinus bradycardia, Other (frequent PVCs) Intervals: Prolonged PA QRS: Poor R wave progression, Low voltage Ischemia: Non specific changes Compare to prior EKG: Old EKG unavailable Computer interpretation: Agree with computer - Labs Labs: Laboratory Tests 05/01/20 05/01/20 05/01/20 12:45 12:45 12:45 WBC 6.2 RBC 3.05 L Hgb 9.2 L Hct 29.4 L MCV 96.4 H MCH 30.2 MCHC 31.3 L RDW 14.6 Plt Count 148 MPV 11.0 Neut # (Auto) 4.8 Lymph # (Auto) 0.5 L [place] # (Auto) 0.6 Eos # (Auto) 0.2 Baso # (Auto) 0.0 Absolute Nucleated RBC 0.00 Nucleated RBC % 0.0 Sodium 140 Potassium 4.2 Chloride 104 Carbon Dioxide 24 Anion Gap 12.0 BUN 21 H Creatinine 1.1 Estimated GFR (MDRD) 65 L Glucose 63 L Calcium 9.5 Total Bilirubin 0.6 AST 30 ALT 18 Alkaline Phosphatase 43 B-Natriuretic Peptide 212 H Total Protein 6.5 L Albumin 3.7 Globulin 2.8 Albumin/Globulin Ratio 1.3 Lipase 44 TSH Urine Color Urine Clarity Urine pH Ur Specific Rhodes Urine Protein Urine Glucose (UA) Urine Ketones Urine Occult Blood Urine Nitrite Urine Bilirubin Urine Urobilinogen Ur Leukocyte Esterase Ur Microscopic Review Urine Culture Comments 05/01/20 05/01/20 12:45 13:00 WBC RBC Hgb Hct MCV MCH MCHC RDW Plt Count MPV Neut # (Auto) Lymph # (Auto) [place] # (Auto) Eos # (Auto) Baso # (Auto) Absolute Nucleated RBC Nucleated RBC % Sodium Potassium Chloride Carbon Dioxide Anion Gap BUN Creatinine Estimated GFR (MDRD) Glucose Calcium Total Bilirubin AST ALT Alkaline Phosphatase B-Natriuretic Peptide Total Protein Albumin Globulin Albumin/Globulin Ratio Lipase TSH 3.80 Urine Color STRAW Urine Clarity CLEAR Urine pH 7.0 Ur Specific Rhodes 1.010 Urine Protein NEGATIVE Urine Glucose (UA) NEGATIVE Urine Ketones NEGATIVE Urine Occult Blood NEGATIVE Urine Nitrite NEGATIVE Urine Bilirubin NEGATIVE Urine Urobilinogen 0.2 (NORMAL) Ur Leukocyte Esterase NEGATIVE Ur Microscopic Review NOT INDICATED Urine Culture Comments NOT INDICATED - Rads (name of study) CXR Radiology: Final report received (Minimal less costophrenic angle blunting possibly related to scarring, atelectasis or potentially trace effusion.) PD MEDICAL DECISION MAKING - ED course Complexity details: reviewed results, re-evaluated patient, considered differential, d/w patient, d/w b2b sales consultant (Leandro Comer MD) ED course: 79-year-old male presents the emergency department for evaluation of 2 days of bilateral lower extremity edema and mild periorbital edema. He does have a history of rectal proctitis which has recently been treated with hydrocortisone enemas for the last 18 days. On screening labs he does have preserved renal and liver function. He is not anemic. His BNP is mildly elevated at just over 200 however chest x-ray not consistent with acute heart failure. In addition to that he has no crackles on cardiopulmonary exam. I did discuss with Dr. Banerjee's the concern that the generalized edema may be related to hydrocortisone enemas however he does not feel that this is likely. However he feels the patient can stop administering himself the enemas. He would like to follow him up in office to discuss further treatment of the proctitis. In the short-term I will write a prescription for 2 days worth of Lasix to help with the edema. Emergent return precautions were discussed. Departure - Departure Disposition: 01 Home, Self Care Clinical Impression: Lower extremity edema, Chronic ulcerative proctitis with rectal bleeding Condition: Stable Record reviewed to determine appropriate education?: Yes Follow-Up: James Comer MD [Provider Admit Priv/Credential] - Miguel Angel Comer DO [Primary Care Provider] - Prescriptions: Furosemide [Lasix] 20 mg PO DAILY 2 Days #2 Comments: Franklyn mancera were seen in the emergency department today for swelling around your eyes and on your lower legs. Your kidney function today is normal. Your chest x-ray does not show signs of heart failure. As we discussed I suspect that the cause of the swelling may be related to the hydrocortisone enemas that you have been administering. I did speak with Dr. Comer the surgeon who ordered these. He does not feel that they are causing the swelling but feels it is appropriate to stop taking the enemas now. Since we are stopping the enemas it is important that you adjust your insulin dosing as you will require much less insulin. To help with the swelling I have ordered 2 days of Lasix only. This should help get rid of the extra water weight that you have. If at any point you develop chest pain or shortness of breath or feel that the swelling is not improving please return to the emergency department. Please schedule follow-up with Dr. Comer in office. He will discuss other therapy to help manage the radiation proctitis that you have.
[2020-05-01 12:51] LABS: BASOPHILS % (AUTO) 0.5 %; EOSINOPHILS # (AUTO) 0.2 10^3/uL (0.0-0.7); EOSINOPHILS % (AUTO) 3.7 %; HGB - HEMOGLOBIN 9.2 g/dL (14.0-18.0); LYMPHOCYTES # (AUTO) 0.5 10^3/uL (1.5-3.5); LYMPHOCYTES % (AUTO) 8.4 %; MEAN CORPUSCULAR HEMOGLOBIN 30.2 pg (27.0-31.0); MEAN CORPUSCULAR HGB CONC 31.3 g/dL (32.0-36.0); MEAN CORPUSCULAR VOLUME 96.4 fL (80.0-94.0); MONOCYTES # (AUTO) 0.6 10^3/uL (0.0-1.0); MONOCYTES % (AUTO) 9.7 %; NEUTROPHILS # (AUTO) 4.8 10^3/uL (1.5-6.6); NEUTROPHILS % (AUTO) 77.2 %; PLT - PLATELET COUNT 148 10^3/uL (130-450); RED BLOOD COUNT 3.05 10^6/uL (4.70-6.10); RED CELL DISTRIBUTION WIDTH 14.6 % (12.0-15.0); WHITE BLOOD COUNT 6.2 x10^3/uL (4.8-10.8)
[2020-05-01 13:07] LABS: BILIRUBIN,URINE NEGATIVE (NEGATIVE); GLUCOSE, URINE (UA) NEGATIVE (NEGATIVE); KETONES,URINE (UA) NEGATIVE (NEGATIVE); LEUKOCYTE ESTERASE, URINE NEGATIVE (NEGATIVE); NITRITE,URINE NEGATIVE (NEGATIVE); OCCULT BLOOD,URINE NEGATIVE (NEGATIVE); PROTEIN,URINE NEGATIVE (NEGATIVE); UROBILINOGEN,URINE 0.2 (NORMAL) E.U./dL (NORMAL)
--- NOTE | 2020-05-01 13:07 | XRAY Report ---
PROCEDURE: Chest 1 View X-Ray INDICATIONS: chest pain TECHNIQUE: One view of the chest was acquired. COMPARISON: None FINDINGS: Surgical changes and devices: None. Lungs and pleura: There is minimal blunting of the left costophrenic angle. Mediastinum: Mediastinal contours appear normal. Heart size is enlarged. Bones and chest wall: No suspicious bony lesions. Overlying soft tissues appear unremarkable. IMPRESSION: Minimal left costophrenic angle blunting possibly related to scarring, atelectasis or potentially tra ce effusion. Reviewed by: Keri Mina MD on 05/01/2020 12:06 PM [facility] Approved by: Keri Mina MD on 05/01/2020 12:06 PM [facility] Station ID: [id number]
[2020-05-01 13:09] LABS: ALBUMIN 3.7 g/dL (3.2-5.5); ALBUMIN/GLOBULIN RATIO 1.3 (1.0-2.2); BILIRUBIN,TOTAL 0.6 mg/dL (0.2-1.0); CALCIUM 9.5 mg/dL (8.5-10.3); CREATININE 1.1 mg/dL (0.6-1.2); TOTAL PROTEIN 6.5 g/dL (6.7-8.2)
[2020-05-01 13:10] LABS: CLARITY,URINE CLEAR (CLEAR)
[2020-05-01 14:14] VITALS: BP 187/66
== END 2020-05-01 14:36 | disposition home or self-care (01) ==
LOC: ED 11:58
DX: R60.0 Localized edema (principal); K51.211 Ulcerative (chronic) proctitis with rectal bleeding; R00.1 Bradycardia, unspecified; I49.3 Ventricular premature depolarization; I10 Essential (primary) hypertension; E10.9 Type 1 diabetes mellitus without complications; Z85.46 Personal history of malignant neoplasm of prostate; Z92.3 Personal history of irradiation
CPT/HCPCS: 36415; 80053; 81001; 81003; 83690; 83880; 84443; 85025; 87086; 93005; 99284

== ENCOUNTER 2020-07-03 16:48 | Outpatient (CLI) | payer MEDICARE, BC | END 2020-07-03 16:49 | disposition home or self-care (01) | LOC: COV 16:48 | PROVIDERS: ATTEND Surgery | DX: Z01.812 Encounter for preprocedural laboratory examination (principal); K62.7 Radiation proctitis; E11.9 Type 2 diabetes mellitus without complications; Z79.4 Long term (current) use of insulin; Z20.822 Contact with and (suspected) exposure to COVID-19 ==

== ENCOUNTER 2020-07-06 06:23 | Day surgery (SDC) | payer MEDICARE, BC ==
[~2020-07-06 06:23] MED LIST: LACTATED RINGERS 1,000 ML IV ONE
--- OUTSIDE RECORDS SUMMARY | 2020-07-06 06:26 | EXTERNAL MEDICAL SUMMARY RPT | Continuity of Care Document ---
:1940 Demographics Phone Unavailable Preferred Language Unknown Marital Status Unknown Tenriism Affiliation Unknown Race Unknown Ethnic Group Unknown Author Organization [facility] Address [address] [phone] Phone Social History date description facility [phone]
[2020-07-06] MEDS ORDERED: LIDOCAINE MPF 2%-EPI 1:200000 20 ML VIAL ONE (06:52)
[2020-07-06] MEDS ORDERED: BUPIVACAINE 0.5% PF 30 ML VIAL ONE (06:53)
[2020-07-06] MEDS ORDERED: LIDOCAINE JELLY 2% 6 ML JEL.PF.APP ONE (06:53)
--- NOTE | 2020-07-06 07:32 | ANESTHESIA ---
Pre-Anesthesia VS, & Labs - Diagnosis radiation proctitis - Procedure instill formalin rectum Vital Signs: Temp Pulse Resp BP Pulse Ox 36 C L 72 16 156/58 H 99 07/06/20 06:30 07/06/20 06:30 07/06/20 06:30 07/06/20 06:30 07/06/20 06:30 Height: 5 ft 6 in Weight (kg): 85 kg Body Mass Index: 30.2 BMI Classification: Obese - NPO >8 hours - Lab Results Current Lab Results: Laboratory Tests 07/06/20 06:56: POC Whole Bld Glucose 231 H Home Medications and Allergies Home Medications: Ambulatory Orders Ascorbic Acid [Vitamin C] 1,000 mg PO DAILY 06/30/20 Grape Seed And Reveratrol 235 mg PO QID PRN 06/30/20 Insulin Lispro [Humalog] 10 unit SUBQ ONCE 06/30/20 Losartan/Hydrochlorothiazide [Hyzaar 100-25 Tablet] 1 each PO DAILY 06/30/20 Sucralfate [Carafate] 2 gm DE BID 06/30/20 Vitamin E 1,000 unit PO DAILY 06/30/20 carvediloL [Coreg] 12.5 mg PO BID 06/30/20 Donepezil HCl [Aricept] 10 mg PO DAILY 07/12/13 Levothyroxine [Synthroid] 112 mg PO DAILY 07/12/13 Cetirizine HCl 10 mg PO PRN PRN 03/28/16 Cholecalciferol (Vitamin D3) [Vitamin D3] 1 cap PO DAILY 03/28/16 Simvastatin [Zocor] 20 mg PO DAILY 03/28/16 Tamsulosin [Flomax] 0.4 mg PO DAILY 03/28/16 Omeprazole 40 mg PO DAILY 05/01/20 Prazosin [Minipress] 6 mg PO QPM 05/01/20 Ascorbic Acid [Vitamin C] 1,000 mg PO DAILY 06/30/20 Grape Seed And Reveratrol 235 mg PO QID PRN 06/30/20 Insulin Lispro [Humalog] 10 unit SUBQ ONCE 06/30/20 Losartan/Hydrochlorothiazide [Hyzaar 100-25 Tablet] 1 each PO DAILY 06/30/20 Sucralfate [Carafate] 2 gm DE BID 06/30/20 Vitamin E 1,000 unit PO DAILY 06/30/20 carvediloL [Coreg] 12.5 mg PO BID 06/30/20 Allergies/Adverse Reactions: Allergies Allergy/AdvReac Type Severity Reaction Status Date / Time Penicillins Allergy Severe Hives Verified 05/01/20 12:15 lisinopril Allergy Intermediate cough Verified 05/01/20 12:15 guaifenesin Allergy Unknown Hives Verified 05/01/20 12:15 metronidazole [From Flagyl] Allergy Unknown Itching Verified 05/01/20 12:15 Metronidazole HCl * Allergy Unknown Unknown Verified 05/01/20 12:15 [From Flagyl] Anes History & Medical History - Anesthetic History Anesthesia Complications: reports: No previous complications Family history of Anesthesia Complications: Denies Family history of Malignant Hyperthermia: Denies - Medical History Cardiovascular: reports: Hypertension, Atrial fibrillation Pulmonary: reports: Sleep apnea, CPAP use Gastrointestinal: reports: GI bleed, Chronic diarrhea Urinary: reports: Other Neuro: reports: TIA Musculoskeletal: reports: Osteoarthritis Endocrine/Autoimmune: reports: Type 1 diabetes, HyPOthyroidism Skin: reports: None Smoking Status: Never smoker - Surgical History General: reports: Appendectomy, Colonoscopy Eyes Ears Nose Throat (EENT): reports: Cataracts, Tonsil/Adenoidectomy Orthopedic: reports: Other Exam General: Alert, Oriented x3, Cooperative Dental: WNL Mouth Openin Fingerbreadth Neck Mobility: Normal Mallampati classification: I, II Thyromental Distance: 4-6 cm Respiratory: Lungs clear Cardiovascular: Regular rate Plan Anesthesia Type: General (pt consented for MAC with GA as backup), MAC Consent for Procedure(s) Verified and Reviewed: Yes Code Status: Attempt Resuscitation ASA classification: 3-Severe systemic disease Is this case an emergency?: No
[2020-07-06] MEDS ORDERED: fentaNYL 100 MCG/2 ML VIAL ONE (07:34)
[2020-07-06] MEDS ORDERED: PROPOFOL 200 MG/20 ML VIAL IVP ONE ×2 (07:34→09:04)
[2020-07-06] MEDS ORDERED: LIDOCAINE-MPF 2% 5 ML VIAL ONE (07:34)
[2020-07-06] MEDS ORDERED: MIDAZOLAM 2 MG/2 ML VIAL ONE (07:34)
[2020-07-06] MEDS ORDERED: BUPIVACAINE 0.5% PF 30 ML VIAL INFIL ONE ×2 (08:05→08:59)
[2020-07-06] MEDS ORDERED: LIDOCAINE 2%-EPI 1:100000 20 ML MDV SUBQ ONE ×2 (08:05→08:59)
[2020-07-06] MEDS ORDERED: MORPHINE 2 MG/ML CARPUJECT IVP PRN (08:16)
[2020-07-06] MEDS ORDERED: ePHEDrine 50 MG/ML VIAL IVP PRN (08:16)
[2020-07-06] MEDS ORDERED: NALOXONE 0.4 MG/ML VIAL IVP PRN (08:16)
[2020-07-06] MEDS ORDERED: ATROPINE ABBOJECT 1 MG/10 ML SYRINGE IVP PRN (08:16)
[2020-07-06] MEDS ORDERED: HYDROmorphone 0.5 MG/0.5 ML SYRINGE IVP PRN ×2 (08:16→09:40)
[2020-07-06] MEDS ORDERED: METOCLOPRAMIDE 10 MG/2 ML VIAL IVP PRN (08:16)
[2020-07-06] MEDS ORDERED: fentaNYL 100 MCG/2 ML VIAL IVP PRN (08:16)
[2020-07-06] MEDS ORDERED: SEVOFLURANE 250 ML LIQUID INH ONE (08:43)
[2020-07-06] MEDS ORDERED: LACTATED RINGERS 1,000 ML IV SCH ×2 (09:00→10:00)
[2020-07-06] MEDS ORDERED: LIDOCAINE 2% URO-JET 5 ML SYRINGE UR ONE (09:08)
[2020-07-06] MEDS ORDERED: LACTATED RINGERS 1,000 ML IV ONE (09:23)
[2020-07-06] MEDS ORDERED: ONDANSETRON 4 MG/2 ML VIAL IVP PRN (09:40)
[2020-07-06] MEDS ORDERED: oxyCODONE 5 MG TABLET PO PRN (09:40)
--- NOTE | 2020-07-06 09:47 | OPERATIVE REPORT ---
Operative Report - General Procedure Date: 07/06/20 Planned Procedure: 1. Examined anesthesia 2. Pudendal block 3. Rigid proctosigmoidoscopy 4. Chemical ablation of radiation proctitis 5. Possible electrocautery 6. Urinary bladder catheterization Pre-Op Diagnosis: Radiation proctitis; failure of med mgmt incl Carafate, Canasa, Bg enemas Procedure Performed: 1. Examined anesthesia 2. Pudendal block 3. Rigid proctosigmoidoscopy 4. Chemical ablation of radiation proctitis 5. Bovie electrocautery ablation of bleeding 6. Urinary bladder catheterization Post Op Diagnosis: Same; hemostatic - Procedure Note Primary Surgeon: Souleymane Secondary Surgeon: Agustin Anesthesia Provider: Donnie Anesthesia Technique: Local, MAC Estimated Blood Loss (mL): 5 Urine Output (mL): 500 Indications: See clinic note Findings: Radiation proctitis addressed with formalin ablation as well as electrocautery for areas of bleeding diathesis. Hemostatic at the end of the case. The formalin was aggressively irrigated the closure of this case to prevent any contact dermatitis. The anus was packed with Gelfoam wrapped with Surgicel. Complications: None - Other Other Information/Narrative: OPERATIVE FINDINGS 1. Findings consistent with radiation proctitis all the way down to the dentate line. 2. Internal hemorrhoids, grade 2; however, not amenable to intervention given the history of external beam radiation. 3. Hemostatic after electrocautery and formalin 10% chemical ablation. 4. No masses, polyps, or other areas noted. DESCRIPTION OF PROCEDURE: Patient was taken to the operating room and placed supine on the operating table. Informed consent was already obtained. The patient was prepped and draped in the usual sterile fashion. The patient was induced with general anesthesia. Timeout was called and agreed to by all in the room. Patient was performed rigid proctosigmoidoscopy Attending Physician Attestation Physical Presence Documentation I was physically present during the service to the patient and/or personally examined the patient, and I was directly involved in the management of the care provided to the patient. Procedure note: Preoperative diagnosis: Radiation proctitis Postoperative diagnosis: Radiation proctitis Procedure: Flexible proctosigmoidoscopy Surgeon: James Comer M.D. Indication: History of radiation proctitis following therapy for prostate cancer. Refractory to maximal medical therapy. Consent was obtained from the patient. Verification of patient identification and procedure was performed. Timeout was called and agreed to by all in the room. Procedure detail: Patient was placed in the left lateral decubitus position on the examination table. Inspection and digital rectal exam were performed, followed by insertion of the lubricated proctosigmoidoscope. The scope was advanced under direct vision with air insufflation. The lumen and mucosa was then examined carefully. The quality of bowel prep was good. The proctosigmoidoscope was then withdrawn. Findings: Diffuse mucosal inflammatory changes consistent with chronic radiation proctitis through to the proximal rectum Conclusions: The patient tolerated procedure well and was informed regarding the above listed findings. The patient at this time was evaluated for the entirety of the anus and noted for the following findings. Inspection: External Hemorrhoids -none Fissure in ano -none Erythema (perianal) -none Palpation: Fluctuance -none Palpable cord -none Scar tissue -none Induration -none Digital Rectal Exam: Rectal Tone -normal tone Fluctuance -none Sphincter -intact Masses -none Anoscopy: Hemorrhoids - Grade II Bleeding -none Distal proctitis -consistent with radiation proctitis At this time, the patient was performed for chemical ablation using 10% formalin to address his chronic radiation proctitis, which had failed maximal medical therapy, which included bg enemas, for which he was refractory secondary to intractable hyperglycemia. The patient has also been attempted for Canasa enemas, as well as Carafate enemas as well. At this time, the patient was noted for internal hemorrhoids, nonactive bleeding, and was not candidate for hemorrhoidectomy or other intervention besides ablative therapy. He is neither a candidate for rubber band ligation given the history of external beam radiation and its associated complications. We proceeded then with an Rigid proctosigmoidoscopy to the rectosigmoid junction and then proceeded to, using the cotton tip applicator, apply formalin at 10% sequentially to the entirety of the rectum. We proceeded down to the dentate line. At this time, we waited approximately 5-10 minutes, and thereafter proceeded to aggressively irrigate out the entirety of the rectum and rectosigmoid with the proctoscope without any complications. There were several areas of refractory bleeding that were addressed with Bovie electrocautery without any complications. The patient was placed for an anal packing, constructed from Gelfoam and Surgicel. The patient was placed for a red rubber catheter at the conclusion of this case and 500 mL of sterile saline. The patient was placed and performed for a pudendal block, and had perianal anesthetic as well, using local. Was present for the entirety of this operative intervention. All counts sponge needles instruments were correct at the conclusion of this operative case. Please note that voice recognition software was used to transcribe this note and inadvertent errors might persist in spite of review and editing. I am obliged to you for your attention. I am thankful to you for allowing me to participate with you in this care of this patient.
[2020-07-06] MEDS ORDERED: oxyCODONE 5 MG TABLET ONE (09:50)
--- NOTE | 2020-07-06 09:51 | PROVIDER PROGRESS NOTE ---
Progress Note Procedure Date: 07/06/20 Planned Procedure: 1. Examined anesthesia 2. Pudendal block 3. Rigid proctosigmoidoscopy 4. Chemical ablation of radiation proctitis 5. Possible electrocautery 6. Urinary bladder catheterization Pre-Op Diagnosis: Radiation proctitis; failure of med mgmt incl Carafate, Canasa, Americo enemas Procedure Performed: 1. Examined anesthesia 2. Pudendal block 3. Rigid proctosigmoidoscopy 4. Chemical ablation of radiation proctitis 5. Bovie electrocautery ablation of bleeding 6. Urinary bladder catheterization Post Op Diagnosis: Same; hemostatic - Procedure Note Primary Surgeon: Souleymane Secondary Surgeon: Agustin Anesthesia Provider: Donnie Anesthesia Technique: Local, MAC Estimated Blood Loss (mL): 5 Urine Output (mL): 500 Indications: See clinic note Findings: Radiation proctitis addressed with formalin ablation as well as electrocautery for areas of bleeding diathesis. Hemostatic at the end of the case. The formalin was aggressively irrigated the closure of this case to prevent any contact dermatitis. The anus was packed with Gelfoam wrapped with Surgicel. Complications: None
[2020-07-06 09:57] VITALS: BP 159/54
--- NOTE | 2020-07-06 13:34 | ANESTHESIA POST OP EVALUATION ---
Anesthesia Post Eval - Post Anesthesia Eval Vitals: Last Vital Signs Temp 36.5 C 07/06/20 09:55 Pulse 60 07/06/20 09:55 Resp 14 07/06/20 09:55 BP 159/54 H 07/06/20 09:55 Pulse Ox 98 07/06/20 09:55 CV Function Including HR & BP: Stable Pain Control: Satisfactory Nausea & Vomiting: Negative Mental Status: Baseline Respiratory Status: Airway Patent Hydration Status: Satisfactory
== END 2020-07-06 06:24 | disposition home or self-care (01) ==
LOC: SDS 06:23
PROVIDERS: ATTEND Surgery
DX: K62.7 Radiation proctitis (principal); K64.8 Other hemorrhoids; E10.9 Type 1 diabetes mellitus without complications; I10 Essential (primary) hypertension; I48.91 Unspecified atrial fibrillation; E78.5 Hyperlipidemia, unspecified; G47.30 Sleep apnea, unspecified; K52.9 Noninfective gastroenteritis and colitis, unspecified; E03.9 Hypothyroidism, unspecified; M51.36 Other intervertebral disc degeneration, lumbar region; E66.9 Obesity, unspecified; Z68.30 Body mass index [BMI] 30.0-30.9, adult; Z85.46 Personal history of malignant neoplasm of prostate; Z79.84 Long term (current) use of oral hypoglycemic drugs; Z86.73 Personal history of transient ischemic attack (TIA), and cerebral infarction without residual deficits; Z79.899 Other long term (current) drug therapy
CPT/HCPCS: 45320; A9270; J3490; J7120

== ENCOUNTER 2020-07-18 08:00 | Outpatient (CLI) | payer MEDICARE, BC ==
[2020-07-18 13:01] LABS: BASOPHILS % (AUTO) 0.7 %; EOSINOPHILS # (AUTO) 0.1 10^3/uL (0.0-0.7); EOSINOPHILS % (AUTO) 2.1 %; HCT - HEMATOCRIT 30.2 % (42.0-52.0); HGB - HEMOGLOBIN 9.6 g/dL (14.0-18.0); LYMPHOCYTES # (AUTO) 0.7 10^3/uL (1.5-3.5); LYMPHOCYTES % (AUTO) 11.8 %; MEAN CORPUSCULAR HEMOGLOBIN 30.4 pg (27.0-31.0); MEAN CORPUSCULAR HGB CONC 31.8 g/dL (32.0-36.0); MEAN CORPUSCULAR VOLUME 95.6 fL (80.0-94.0); MONOCYTES # (AUTO) 0.5 10^3/uL (0.0-1.0); MONOCYTES % (AUTO) 8.8 %; NEUTROPHILS # (AUTO) 4.3 10^3/uL (1.5-6.6); NEUTROPHILS % (AUTO) 76.1 %; PLT - PLATELET COUNT 156 10^3/uL (130-450); RED BLOOD COUNT 3.16 10^6/uL (4.70-6.10); RED CELL DISTRIBUTION WIDTH 13.6 % (12.0-15.0); WHITE BLOOD COUNT 5.7 x10^3/uL (4.8-10.8)
[2020-07-18 13:08] LABS: CREATININE,URINE 108.9 mg/dL; PROTEIN/CREATININE RATIO,URINE 0.2 (<=0.2)
[2020-07-18 13:40] LABS: ALBUMIN/GLOBULIN RATIO 1.5 (1.0-2.2); BILIRUBIN,TOTAL 0.4 mg/dL (0.2-1.0); CALCIUM 9.1 mg/dL (8.5-10.3); CREATININE 1.4 mg/dL (0.6-1.2); FERRITIN 41.3 ng/mL (23.9-336.2); POTASSIUM 4.5 mmol/L (3.5-5.0); TOTAL PROTEIN 6.7 g/dL (6.7-8.2)
== END 2020-07-18 23:59 | disposition home or self-care (01) ==
LOC: LAB.WCP 08:00
PROVIDERS: ATTEND Family Medicine
DX: K92.2 Gastrointestinal hemorrhage, unspecified (principal); R60.9 Edema, unspecified
CPT/HCPCS: 36415; 80053; 82570; 82607; 82728; 83540; 84156; 84466; 85025

== ENCOUNTER 2020-08-08 08:00 | Outpatient (CLI) | payer MEDICARE, BC | END 2020-08-08 23:59 | disposition home or self-care (01) | LOC: LAB.R 08:00 | PROVIDERS: ATTEND Surgery | DX: K52.9 Noninfective gastroenteritis and colitis, unspecified (principal) | CPT/HCPCS: 81599; 87015; 87045; 87046; 87177; 87209; 87272; 87329; 87427; 87493 ==

== ENCOUNTER 2020-08-08 08:00 | Outpatient (CLI) | payer MEDICARE, BC ==
[2020-08-08 18:10] LABS: BASOPHILS % (AUTO) 0.2 %; EOSINOPHILS # (AUTO) 0.1 10^3/uL (0.0-0.7); HCT - HEMATOCRIT 29.3 % (42.0-52.0); HGB - HEMOGLOBIN 9.2 g/dL (14.0-18.0); LYMPHOCYTES # (AUTO) 0.6 10^3/uL (1.5-3.5); LYMPHOCYTES % (AUTO) 12.7 %; MEAN CORPUSCULAR HEMOGLOBIN 30.1 pg (27.0-31.0); MEAN CORPUSCULAR HGB CONC 31.4 g/dL (32.0-36.0); MEAN CORPUSCULAR VOLUME 95.8 fL (80.0-94.0); MEAN PLATELET VOLUME 12.2 fL (7.4-11.4); MONOCYTES # (AUTO) 0.5 10^3/uL (0.0-1.0); MONOCYTES % (AUTO) 10.7 %; NEUTROPHILS # (AUTO) 3.7 10^3/uL (1.5-6.6); PLT - PLATELET COUNT 93 10^3/uL (130-450); RED BLOOD COUNT 3.06 10^6/uL (4.70-6.10)
[2020-08-08 18:27] LABS: ALBUMIN 4.1 g/dL (3.2-5.5); ALBUMIN/GLOBULIN RATIO 1.6 (1.0-2.2); BILIRUBIN,TOTAL 0.7 mg/dL (0.2-1.0); CALCIUM 9.3 mg/dL (8.5-10.3); CREATININE 1.2 mg/dL (0.6-1.2); POTASSIUM 4.6 mmol/L (3.5-5.0); TOTAL PROTEIN 6.7 g/dL (6.7-8.2)
== END 2020-08-08 23:59 | disposition home or self-care (01) ==
LOC: LAB.WCP 08:00
PROVIDERS: ATTEND Family Medicine
DX: D64.9 Anemia, unspecified (principal); K52.9 Noninfective gastroenteritis and colitis, unspecified
CPT/HCPCS: 36415; 80053; 81599; 85025; 87015; 87045; 87046; 87177; 87209; 87272; 87329; 87427; 87493

== ENCOUNTER 2020-08-28 17:21 | Outpatient (CLI) | payer MEDICARE, BC | END 2020-08-28 17:22 | disposition short-term general hospital (02) | LOC: EMS 17:21 | DX: Z04.3 Encounter for examination and observation following other accident (principal); M25.552 Pain in left hip | CPT/HCPCS: A0425; A0427 ==

== ENCOUNTER 2020-11-06 16:11 | Outpatient (CLI) | payer MEDICARE, BC ==
[2020-11-06 20:45] LABS: BASOPHILS % (AUTO) 0.4 %; EOSINOPHILS # (AUTO) 0.1 10^3/uL (0.0-0.7); EOSINOPHILS % (AUTO) 2.2 %; HCT - HEMATOCRIT 31.4 % (42.0-52.0); HGB - HEMOGLOBIN 9.9 g/dL (14.0-18.0); LYMPHOCYTES # (AUTO) 0.7 10^3/uL (1.5-3.5); LYMPHOCYTES % (AUTO) 13.1 %; MEAN CORPUSCULAR HEMOGLOBIN 30.7 pg (27.0-31.0); MEAN CORPUSCULAR HGB CONC 31.5 g/dL (32.0-36.0); MEAN CORPUSCULAR VOLUME 97.5 fL (80.0-94.0); MEAN PLATELET VOLUME 12.3 fL (7.4-11.4); MONOCYTES # (AUTO) 0.6 10^3/uL (0.0-1.0); MONOCYTES % (AUTO) 11.1 %; NEUTROPHILS % (AUTO) 72.8 %; PLT - PLATELET COUNT 101 10^3/uL (130-450); RED BLOOD COUNT 3.22 10^6/uL (4.70-6.10); RED CELL DISTRIBUTION WIDTH 13.7 % (12.0-15.0); WHITE BLOOD COUNT 5.4 x10^3/uL (4.8-10.8)
[2020-11-06 21:03] LABS: ALBUMIN 4.3 g/dL (3.2-5.5); ALBUMIN/GLOBULIN RATIO 1.5 (1.0-2.2); BILIRUBIN,TOTAL 0.5 mg/dL (0.2-1.0); CALCIUM 9.4 mg/dL (8.5-10.3); CREATININE 1.2 mg/dL (0.6-1.2); POTASSIUM 4.7 mmol/L (3.5-5.0); TOTAL PROTEIN 7.2 g/dL (6.7-8.2)
[2020-11-06 21:18] LABS: FERRITIN 101.6 ng/mL (23.9-336.2)
== END 2020-11-06 16:12 | disposition home or self-care (01) ==
LOC: LAB.N 16:11
PROVIDERS: ATTEND Family Medicine
DX: D64.9 Anemia, unspecified (principal)
CPT/HCPCS: 36415; 80053; 82607; 82728; 83540; 84466; 85025

== ENCOUNTER 2020-11-10 10:23 | Outpatient (CLI) | payer MEDICARE, BC ==
--- NOTE | 2020-11-10 11:10 | SLEEP CARE CONSULTATION ---
Information from patient questionnaire entered by Philomena Galloway. I have reviewed and concur with the information entered by Philomena Galloway. This document represents the service I personally performed and the decisions made by , Fifi Edwards ARNP. History of Present Illness Service Date and Time: 11/10/2020 1023 Previous diagnosis: Moderate, Obstructive Sleep Apnea-Hypopnea Syndrome AHI: 21 (in 2010)(13.6 in 2003) Reason for follow up: annual (last seen 10/2019) Equipment type: CPAP Equipment obtained from: [employer] (getting supplies as needed) Mask style: Nasal Mask brand: Resmed (medium Resmed N20) Backup mask available: Yes (new mask just recieved) Last cushion change: 1 month Prior sleep studies: Yes Year and Where: 2010 - [facility] , 2003 - [facility] additional information: TARUN VICENTE was diagnosed to have moderate, AHI 21, obstructive sleep apnea- hypopnea syndrome and returned today for CPAP therapy annual follow-up. CPAP Compliance Data - Data Reviewed with Patient Average duration of nightly device use: 8 hr 12 min Compliance rate %: 96.1 (180 days) Current pressure setting (cmH2O): 11-15 Humidity settin Heated hose settin Average residual AHI: 3.3 Average large leak: 1 min 37 sec Subjective Missed days of use due to: reports: other (in ER due to fall) Patient concerns: reports: air blowing in eyes (just needs adjustment and a new headgear). denies: aerophagia, mask discomfort, mask leak noise, condensation in mask/hose, nasal congestion, dry mouth, nose, throat, epistaxis, other Observed to snore while using device: No Current pressure setting perceived as: comfortable On therapy, patient: reports: sleeping better, awakening more refreshed, being more awake and alert during the day, more rested overall. denies: drowsiness while driving Initial [place] Sleepiness Scale score: 6 (in 2010) Current [place] Sleepiness Scale score: 9 Allergies and Home Medications Home medication list reviewed: Yes (see list) Review of Systems Review of systems same as previous: No (fell in August broke femur; radiation proctitis; gabo cevallos for consult) Physical Exam Heart Rate: 50 O2 Saturation: 97 Height: 5 ft 6 in Weight: 184 lb Body Mass Index: 29.7 BMI Classification: Overweight Impression and Plan 1. Obstructive Sleep Apnea-Hypopnea Syndrome, moderate, with good treatment compliance and good apnea control. On CPAP therapy, the patient has better sleep quality and is more rested overall. Patient was notified by Medicare that his device is on the recall. He would like to update his device as he is eligible for a new one. Patient denies any black particles seen in machine or hoses, any unusual odors coming from device. Patient has not experienced any physical symptoms such as upper airway irritation, headache, skin or eye irritation, asthma, nausea/vomiting, difficulty breathing or chest pain. Since the patients current machine is at least 5 years old the patient is opting to update their device with a device that is not on the recall. Patient voiced understanding and agreement with plan. Patient's apnea severity and rationale for treatment to reduce apnea, improve sleep quality and reduce cardiovascular and cerebrovascular events was reviewed. I also reviewed the benefit of consistent device use of CPAP for hypertension, diabetes, and gastric reflux. * Continue auto CPAP pressure at 11-15 cmH2O * Update machine and supplies * Notify me if snoring with mask or feeling that the pressure is too much or too little * Attempt to lose weight * Call this office if any problems using CPAP * Return for follow up one month after obtaining new device, or sooner if concerns arise Counseling Topics: Spare mask, Weight loss health impact Visit Type: In Office Time Spent with Patient (minutes): 20 Provider Statement: I spent 100% of the Face to Face Visit with the patient with greater than 50% spent counseling the patient and coordination of care.
== END 2020-11-10 10:24 | disposition home or self-care (01) ==
LOC: SC 10:23
PROVIDERS: ATTEND Nurse Practitioner Family
DX: G47.33 Obstructive sleep apnea (adult) (pediatric) (principal)
CPT/HCPCS: 99213; G0463; 99212

== ENCOUNTER 2020-12-25 06:28 | Day surgery (SDC) | payer MEDICARE, BC ==
[2020-12-25] MEDS ORDERED: CEFAZOLIN SODIUM IN 0.9 % NACL 2 GM/100 ML BAG IV ONE (06:31)
[2020-12-25] MEDS ORDERED: LACTATED RINGERS 1,000 ML IV ONE (06:44)
[2020-12-25] MEDS ORDERED: BUPIVACAINE 0.5% PF 10 ML VIAL ONE (07:06)
[2020-12-25] MEDS ORDERED: LIDOCAINE 2%-EPI 1:100000 20 ML MDV ONE (07:06)
[2020-12-25] MEDS ORDERED: ceFAZolin 1 GM VIAL ONE (07:06)
--- NOTE | 2020-12-25 07:16 | ANESTHESIA ---
Pre-Anesthesia VS, & Labs - Diagnosis Right inguinal hernia - Procedure right inguinal hernia repair with mesh Vital Signs: Temp Pulse Resp BP Pulse Ox 36.8 C 46 L 14 160/43 H 100 12/25/20 06:30 12/25/20 06:30 12/25/20 06:30 12/25/20 06:30 12/25/20 06:30 Height: 5 ft 5 in Weight (kg): 84 kg Body Mass Index: 30.8 BMI Classification: Obese - NPO >8 hours Home Medications and Allergies Home Medications: Ambulatory Orders Alpha Lipoic Acid 600 mg PO DAILY 12/21/20 Hydralazine HCl 50 mg PO QID 12/21/20 Levomefolate/B6/B12/Algal Oil [Metanx Capsule] 2 each PO BID 12/21/20 Multivitamin 1 each PO DAILY 12/21/20 Donepezil HCl [Aricept] 10 mg PO DAILY 07/12/13 Levothyroxine [Synthroid] 112 mg PO DAILY 07/12/13 Cetirizine HCl 10 mg PO PRN PRN 03/28/16 Cholecalciferol (Vitamin D3) [Vitamin D3] 1 cap PO DAILY 03/28/16 Simvastatin [Zocor] 20 mg PO DAILY 03/28/16 Tamsulosin [Flomax] 0.4 mg PO DAILY 03/28/16 Omeprazole 40 mg PO DAILY 05/01/20 Prazosin [Minipress] 2 - 4 mg PO BID 05/01/20 Ascorbic Acid [Vitamin C] 1,000 mg PO BID 06/30/20 Grape Seed And Reveratrol 235 mg PO QPM 06/30/20 Insulin Lispro [Humalog] 10 unit SUBQ ONCE 06/30/20 Losartan/Hydrochlorothiazide [Hyzaar 100-25 Tablet] 1 each PO DAILY 06/30/20 Vitamin E 1,000 unit PO BID 06/30/20 carvediloL [Coreg] 12.5 mg PO BID 06/30/20 Alpha Lipoic Acid 600 mg PO DAILY 12/21/20 Hydralazine HCl 50 mg PO QID 12/21/20 Levomefolate/B6/B12/Algal Oil [Metanx Capsule] 2 each PO BID 12/21/20 Multivitamin 1 each PO DAILY 12/21/20 Allergies/Adverse Reactions: Allergies Allergy/AdvReac Type Severity Reaction Status Date / Time Penicillins Allergy Severe Hives Verified 12/25/20 06:46 lisinopril Allergy Intermediate cough Verified 12/25/20 06:46 guaifenesin Allergy Unknown Hives Verified 12/25/20 06:46 metronidazole [From Flagyl] Allergy Unknown Itching Verified 12/25/20 06:46 Metronidazole HCl * Allergy Unknown Unknown Verified 12/25/20 06:46 [From Flagyl] Anes History & Medical History - Anesthetic History Anesthesia Complications: reports: No previous complications - Medical History Cardiovascular: reports: Hypertension, Atrial fibrillation Pulmonary: reports: Sleep apnea, CPAP use Gastrointestinal: reports: GI bleed, Chronic diarrhea Urinary: reports: Other (CKD stage 3) Neuro: reports: TIA, Peripheral neuropathy Musculoskeletal: reports: Osteoarthritis Endocrine/Autoimmune: reports: Type 1 diabetes (67 years), HyPOthyroidism Blood Disorders: reports: None Skin: reports: None Smoking Status: Never smoker Psychosocial: reports: No issues indicated History of Cancer?: Yes (s/p prostate cancer treated with radiation) - Surgical History General: reports: Appendectomy, Colonoscopy, Other Eyes Ears Nose Throat (EENT): reports: Cataracts, Tonsil/Adenoidectomy Orthopedic: reports: Other Exam General: Alert, Oriented x3, Cooperative, No acute distress Dental: WNL Mouth Openin Fingerbreadth Neck Mobility: Normal Mallampati classification: II Respiratory: Lungs clear, Normal breath sounds, No respiratory distress, No accessory muscle use Cardiovascular: Regular rate, Normal S1, Normal S2, No murmurs Mental/Cognitive Status: Alert/Oriented X3, Normal for patient Plan Anesthesia Type: General Consent for Procedure(s) Verified and Reviewed: Yes Code Status: Attempt Resuscitation ASA classification: 3-Severe systemic disease Is this case an emergency?: No
[2020-12-25] MEDS ORDERED: NALOXONE 0.4 MG/ML VIAL IVP PRN (07:27)
[2020-12-25] MEDS ORDERED: fentaNYL 100 MCG/2 ML VIAL IVP PRN (07:27)
[2020-12-25] MEDS ORDERED: ATROPINE ABBOJECT 1 MG/10 ML SYRINGE IVP PRN (07:27)
[2020-12-25] MEDS ORDERED: HYDROmorphone 0.5 MG/0.5 ML SYRINGE IVP PRN (07:27)
[2020-12-25] MEDS ORDERED: MORPHINE 2 MG/ML CARPUJECT IVP PRN (07:27)
[2020-12-25] MEDS ORDERED: ONDANSETRON 4 MG/2 ML VIAL IVP PRN ×2 (07:27→09:20)
[2020-12-25] MEDS ORDERED: ONDANSETRON 4 MG/2 ML VIAL ONE (07:29)
[2020-12-25] MEDS ORDERED: LIDOCAINE-MPF 2% 5 ML VIAL ONE (07:29)
[2020-12-25] MEDS ORDERED: PROPOFOL 200 MG/20 ML VIAL IVP ONE (07:29)
[2020-12-25] MEDS ORDERED: fentaNYL 100 MCG/2 ML VIAL ONE (07:30)
[2020-12-25] MEDS ORDERED: LACTATED RINGERS 1,000 ML IV SCH (08:00)
[2020-12-25] MEDS ORDERED: LIDOCAINE 1%-EPI 1:100000 30 ML MDV SUBQ ONE ×2 (08:18→08:54)
[2020-12-25] MEDS ORDERED: ceFAZolin 1 GM VIAL IR ONE (08:19)
[2020-12-25] MEDS ORDERED: BUPIVACAINE 0.5% PF 30 ML VIAL SUBQ ONE ×2 (08:19→08:54)
[2020-12-25] MEDS ORDERED: KETOROLAC 30 MG/ML VIAL ONE (08:59)
--- NOTE | 2020-12-25 09:12 | OPERATIVE REPORT ---
Operative Report - General Procedure Date: 12/25/20 Planned Procedure: Right inguinal hernia repair Pre-Op Diagnosis: Right inguinal hernia Procedure Performed: Right inguinal hernia and hydrocele repair Post Op Diagnosis: Right inguinal hernia and hydrocele repair - Procedure Note Primary Surgeon: [place] Anesthesia Provider: VARINDER Dimas Anesthesia Technique: General LMA, Local Pathology: None Estimated Blood Loss (mL): 10 Indications: Painful and intermittently incarcerated right inguinal hernia Findings: 1. Pantaloon right inguinal hernia 2. Moderate size communicating hydrocele Complications: Apparent - Other Other Information/Narrative: After obtaining informed consent, the patient is brought to the operating room and placed in the supine position on the operating table. Following successful induction of general endotracheal anesthesia, appropriate padding of all bony prominences, and placement of appropriate monitors, the abdomen was prepped and draped in the standard surgical fashion. A timeout was held per scope protocol. All elements of the surgical safety checklist were followed before, during, and after the procedure. We began the procedure by infiltrating a mixture of local anesthetics medial to the anterior superior iliac spine on the right. This was done to create an ileal inguinal nerve block. We then selected a site for an incision in the right lower quadrant just superior and lateral to the right pubic tubercle. This area was anesthetized with additional local anesthetic and an incision was created here.The incision was carried down through the skin and subcutaneous tissue to reveal the fascia of the external oblique aponeurosis. Retractor was placed and the aponeurosis was opened in direction of its fibers. The ilioinguinal nerve was immediately identified. We continued by identifying the spermatic cord and gently encircling it with a Romulus drain. The hernia sac was carefully dissected free from the cord structures and was noted to be in the inferior medial position. The sac was in the indirect position and there was a second defect noted in the direct position. In an attempt to dissect the sac from spermatic cord, it became clear that this was in fact a communicating hydrocele.The sac was divided and the distal portion spatulated, the proximal portion was oversewn with Vicryl suture and then placed gently back into the abdominal cavity. We elected to repair the hernia with a large Prolene hernia system mesh implant. This was dipped in Ancef containing solution and then deployed into the defect. The posterior leaflet was straightened and flattened in the preperitoneal space. I was able to cover both the direct and indirect defects with a single large piece of mesh. The anterior leaflet was then nicked medially to provide a place for the spermatic cord and then closed with a Vicryl suture. The more inferior aspect was then sewn to Stefan's ligament medially. Laterally it was tucked under the external beak aponeurosis. The wound was checked for hemostasis and irrigated with warm saline solution. It was aspirated free of all fluid and particulate matter. The extra oblique aponeurosis was then closed with a running locking Vicryl suture Julian's fascia was closed with Vicryl suture and Monocryl stitches were placed in the skin. All sponge, needle, and instrument counts were correct at the conclusion of the case. The patient was allowed awaken from anesthesia without difficulty and taken to the postanesthesia care unit in good condition.
[2020-12-25] MEDS ORDERED: LACTATED RINGERS 250 ML IV ONE (09:17)
[2020-12-25] MEDS ORDERED: oxyCODONE 5 MG TABLET PO PRN (09:20)
[2020-12-25] MEDS ORDERED: ACETAMINOPHEN 325 MG TABLET PO PRN (09:20)
[2020-12-25] MEDS ORDERED: IBUPROFEN 600 MG TABLET PO PRN (09:20)
[2020-12-25 10:32] VITALS: BP 147/48
--- NOTE | 2020-12-25 17:06 | ANESTHESIA POST OP EVALUATION ---
Anesthesia Post Eval - Post Anesthesia Eval Vitals: Last Vital Signs Temp 36.5 C 12/25/20 10:31 Pulse 51 L 12/25/20 10:31 Resp 16 12/25/20 10:31 BP 147/48 H 12/25/20 10:31 Pulse Ox 100 12/25/20 10:31 CV Function Including HR & BP: Stable Pain Control: Satisfactory Nausea & Vomiting: Negative Mental Status: Baseline Respiratory Status: Airway Patent Hydration Status: Satisfactory Anesthesia Complications: None
== END 2020-12-25 06:29 | disposition home or self-care (01) ==
LOC: SDS 06:28
PROVIDERS: ATTEND Surgery
DX: K40.90 Unilateral inguinal hernia, without obstruction or gangrene, not specified as recurrent (principal); N43.3 Hydrocele, unspecified; E66.9 Obesity, unspecified; Z68.30 Body mass index [BMI] 30.0-30.9, adult; I48.91 Unspecified atrial fibrillation; G47.33 Obstructive sleep apnea (adult) (pediatric)
CPT/HCPCS: 49505; 55500; C1781; J0690; J7120

== ENCOUNTER 2020-12-28 15:36 | Outpatient (CLI) | payer MEDICARE, BC | END 2020-12-28 15:37 | disposition home or self-care (01) | LOC: COV 15:36 | PROVIDERS: ATTEND Family Medicine | DX: Z20.822 Contact with and (suspected) exposure to COVID-19 (principal) ==

== ENCOUNTER 2021-01-19 14:20 | Outpatient (CLI) | payer MEDICARE, BC ==
--- NOTE | 2021-01-19 15:15 | DEXA Report ---
PROCEDURE: Dexa Spine and/or Hip INDICATIONS: Osteopenia TECHNIQUE: Dual energy x-ray absorptiometry (DXA) was performed on a Base79 System. Regions measur ed are the AP Spine, femoral neck, and if needed forearm. COMPARISON: None. FINDINGS: Lumbar Spine: Bone Mineral Density 1.538 g/cm/cm, T score 2.6 Right Hip: Bone Mineral Density 0.891 g/cm/cm, T score -1.5 Right Femoral Neck: Bone Mineral Density 0.772 g/cm/cm, T score -2.3 (T score greater or equal to -1.0: NORMAL) (T score from -1.1 to -2.4: OSTEOPENIA) (T score less than or equal to -2.5 to: OSTEOPOROSIS) IMPRESSION: 1. Lumbar spine bone mineral density is within normal limits. 2. Right hip osteopenia. Patients with diagnosis of osteoporosis or osteopenia should have regular bone mineral density assess ment. For those eligible for Medicare, routine testing is allowed once every 2 years. Testing frequ ency can be increased for patients who have rapidly progressing disease or for those who are receivin g medical therapy to restore bone mass. Reviewed by: Darion Bae MD on 01/19/2021 3:14 PM PST Approved by: Darion Bae MD on 01/19/2021 3:14 PM PST Station ID: [id number]
== END 2021-01-19 14:21 | disposition home or self-care (01) ==
LOC: DI 14:20
PROVIDERS: ATTEND Family Medicine
DX: M85.89 Other specified disorders of bone density and structure, multiple sites (principal)

== ENCOUNTER 2021-01-20 13:22 | Outpatient (CLI) | payer MEDICARE, BC | END 2021-01-20 13:23 | disposition home or self-care (01) | LOC: LAB.N 13:22 | PROVIDERS: ATTEND Internal Medicine | DX: Z20.822 Contact with and (suspected) exposure to COVID-19 (principal) ==

== ENCOUNTER 2021-02-05 08:00 | Outpatient (CLI) | payer MEDICARE, BC ==
[2021-02-05 18:04] LABS: BASOPHILS % (AUTO) 0.2 %; EOSINOPHILS # (AUTO) 0.1 10^3/uL (0.0-0.7); EOSINOPHILS % (AUTO) 1.7 %; HCT - HEMATOCRIT 29.5 % (42.0-52.0); LYMPHOCYTES # (AUTO) 0.7 10^3/uL (1.5-3.5); LYMPHOCYTES % (AUTO) 13.3 %; MEAN CORPUSCULAR HEMOGLOBIN 30.4 pg (27.0-31.0); MEAN CORPUSCULAR HGB CONC 30.5 g/dL (32.0-36.0); MEAN CORPUSCULAR VOLUME 99.7 fL (80.0-94.0); MEAN PLATELET VOLUME 12.3 fL (7.4-11.4); MONOCYTES # (AUTO) 0.6 10^3/uL (0.0-1.0); MONOCYTES % (AUTO) 10.5 %; NEUTROPHILS # (AUTO) 3.9 10^3/uL (1.5-6.6); NEUTROPHILS % (AUTO) 73.9 %; PLT - PLATELET COUNT 143 10^3/uL (130-450); RED BLOOD COUNT 2.96 10^6/uL (4.70-6.10); WHITE BLOOD COUNT 5.3 x10^3/uL (4.8-10.8)
[2021-02-05 18:38] LABS: THYROID STIMULATING HORMONE 1.54 uIU/mL (0.34-5.60)
[2021-02-05 18:41] LABS: % IRON SATURATION 27 % (20-50); ALBUMIN 3.8 g/dL (3.2-5.5); ALBUMIN/GLOBULIN RATIO 1.4 (1.0-2.2); ALKALINE PHOSPHATASE 46 IU/L (42-121); ALT ALANINE AMINOTRANSFERASE 15 IU/L (10-60); AST ASPARTATE AMINOTRANSFERASE 28 IU/L (10-42); BILIRUBIN,TOTAL 0.5 mg/dL (0.2-1.0); BUN - BLOOD UREA NITROGEN 40 mg/dL (6-20); CALCIUM 9.1 mg/dL (8.5-10.3); CARBON DIOXIDE - CO2 25 mmol/L (21-32); CHLORIDE 106 mmol/L (101-111); CHOL/HDL RATIO 2.3 (<5.0); CHOLESTEROL 131 mg/dL; CREATININE 1.2 mg/dL (0.6-1.2); GFR - MDRD 58 (>89); HDL CHOLESTEROL 57 mg/dL; IRON 67 ug/dL (45-182); LDL CHOLESTEROL,CALCULATED 63 mg/dL; LDL/HDL RATIO 1.1 (<3.6); POTASSIUM 4.7 mmol/L (3.5-5.0); SODIUM 139 mmol/L (135-145); TOTAL IRON BINDING CAPACITY 246 ug/dL (250-450); TOTAL PROTEIN 6.6 g/dL (6.7-8.2); TRANSFERRIN 176 mg/dL (180-329); TRIGLYCERIDES 54 mg/dL; VLDL CHOLESTEROL 11 mg/dL
[2021-02-05 18:44] LABS: FERRITIN 73.7 ng/mL (23.9-336.2)
[2021-02-05 18:53] LABS: GLUCOSE 54 mg/dL (70-100)
[2021-02-05 21:23] LABS: ESTIMATED AVERAGE GLUCOSE 117 mg/dL (70-100); HEMOGLOBIN A1c% 5.7 % (4.27-6.07)
== END 2021-02-05 23:59 | disposition home or self-care (01) ==
LOC: LAB.WCP 08:00
PROVIDERS: ATTEND Family Medicine
DX: D64.9 Anemia, unspecified (principal); E10.9 Type 1 diabetes mellitus without complications; E03.9 Hypothyroidism, unspecified
CPT/HCPCS: 36415; 80053; 80061; 82728; 83036; 83540; 83721; 84443; 84466; 85025

== ENCOUNTER 2021-03-20 09:31 | Outpatient (CLI) | payer MEDICARE, BC ==
[2021-03-20 10:21] VITALS: BP 132/83
--- NOTE | 2021-03-20 10:21 | SLEEP CARE CONSULTATION ---
Information from patient questionnaire entered by Krut Jiménez MA. I have reviewed and concur with the information entered by Kurt Jiménez MA. This document represents the service I personally performed and the decisions made by , Fifi Edwards ARNP. History of Present Illness Service Date and Time: 03/20/2021 0931 Previous diagnosis: Moderate, Obstructive Sleep Apnea-Hypopnea Syndrome AHI: 21 (in 2010)(13.6 in 2003) Reason for follow up: first compliance (SET UP BEGINING NOV, ROTECH, REPLACEMENT,), first compliance after device update Equipment type: CPAP Equipment obtained from: [employer] (getting supplies, feels their charging is off) Mask style: Nasal (over the nose) Backup mask available: Yes (old mask) Prior sleep studies: Yes Year and Where: 2010 - [facility] , 2003 - [facility] additional information: TARUN VICENTE was diagnosed to have moderate, AHI 21, obstructive sleep apnea- hypopnea syndrome and returned today for CPAP therapy first compliance after updating device follow-up. Sleep Study - Results Prior sleep studies: Yes Year and Where: 2010 - [facility] , 2003 - [facility] CPAP Compliance Data - Data Reviewed with Patient Average duration of nightly device use: 8.4 hours Compliance rate %: 83.3 (used > 4 hours 25/30 days) Current pressure setting (cmH2O): 11-15 (P95 11.8) Average residual AHI: 1.3 Compliance data discussion: He received an [employer] Resvent CPAP device. He has difficulty removing and cleaning the water reservoir and it has a separate electrical plug for the heated hose. But otherwise it working well. Subjective Missed days of use due to: reports: travel Patient concerns: reports: air blowing in eyes, dry mouth, nose, throat (little bit in the mornings). denies: aerophagia, mask discomfort, mask leak noise, condensation in mask/hose, nasal congestion, epistaxis, other Observed to snore while using device: No Current pressure setting perceived as: comfortable On therapy, patient: reports: sleeping better, awakening more refreshed, being more awake and alert during the day, more rested overall. denies: drowsiness while driving Initial [place] Sleepiness Scale score: 6 (in 2010) Current [place] Sleepiness Scale score: 9 (IN 2021) Allergies and Home Medications Known drug allergies: Yes ([facility]) Drug allergies reviewed: Yes Home medication list reviewed: Yes (SAME MEDS JUST INCREASE OF BP MEDS) Review of Systems Review of systems same as previous: No (Radiation Proctitus related) Physical Exam Vital signs obtained and entered by: Henry JIMÉNEZ CMA AASUSANA Blood Pressure: 132/83 (RIGHT) Cuff size: wrist Heart Rate: 72 O2 Saturation: 98 (WITH PAPER MASK) Height: 5 ft 5 in Weight: 178 lb (WITH CLOTHES AND SHOES) Body Mass Index: 29.6 BMI Classification: Overweight Impression and Plan 1. Obstructive Sleep Apnea-Hypopnea Syndrome, moderate, with good treatment compliance and good apnea control. On CPAP therapy, the patient has better sleep quality and is more rested overall. He has significant improvement of his sleep apnea. He is happy enough with new device but it is not as easy to use as his old Respironics. He has had issues will with billing from [employer] and would like to change from them when he is able. He has a new device, iBreeze. I was able to get his compliance information off of the device. Patient's apnea severity and rationale for treatment to reduce apnea, improve sleep quality and reduce cardiovascular and cerebrovascular events was reviewed. I also reviewed the benefit of consistent device use of CPAP for hypertension, diabetes and gastric reflux. Patient was encouraged to lose weight for their overall health and to reduce apneas. * Continue auto CPAP pressure at 11-15 cmH2O * Notify me if snoring with mask or feeling that the pressure is too much or too little * Attempt to lose weight * Call this office if any problems using CPAP * Return for follow up in 1 year, or sooner if concerns arise Counseling Topics: Spare mask, Weight loss health impact Visit Type: In Office Time Spent with Patient (minutes): 25 Provider Statement: I spent 100% of the Face to Face Visit with the patient with greater than 50% spent counseling the patient and coordination of care.
== END 2021-03-20 09:32 | disposition home or self-care (01) ==
LOC: SC 09:31
PROVIDERS: ATTEND Nurse Practitioner Family
DX: G47.33 Obstructive sleep apnea (adult) (pediatric) (principal)
CPT/HCPCS: 99213; G0463; 99212

== ENCOUNTER 2021-05-01 16:46 | Outpatient (CLI) | payer MEDICARE, BC ==
[2021-05-01 20:59] LABS: BASOPHILS % (AUTO) 0.5 %; EOSINOPHILS # (AUTO) 0.2 10^3/uL (0.0-0.7); EOSINOPHILS % (AUTO) 3.1 %; HCT - HEMATOCRIT 31.8 % (42.0-52.0); LYMPHOCYTES # (AUTO) 0.7 10^3/uL (1.5-3.5); LYMPHOCYTES % (AUTO) 12.1 %; MEAN CORPUSCULAR HEMOGLOBIN 30.2 pg (27.0-31.0); MEAN CORPUSCULAR HGB CONC 31.4 g/dL (32.0-36.0); MEAN CORPUSCULAR VOLUME 96.1 fL (80.0-94.0); MONOCYTES # (AUTO) 0.5 10^3/uL (0.0-1.0); MONOCYTES % (AUTO) 9.9 %; PLT - PLATELET COUNT 94 10^3/uL (130-450); RED BLOOD COUNT 3.31 10^6/uL (4.70-6.10); RED CELL DISTRIBUTION WIDTH 13.2 % (12.0-15.0); WHITE BLOOD COUNT 5.5 x10^3/uL (4.8-10.8)
[2021-05-01 21:17] LABS: ALBUMIN 4.2 g/dL (3.2-5.5); ALBUMIN/GLOBULIN RATIO 1.6 (1.0-2.2); ALKALINE PHOSPHATASE 44 IU/L (42-121); ALT ALANINE AMINOTRANSFERASE 15 IU/L (10-60); AST ASPARTATE AMINOTRANSFERASE 26 IU/L (10-42); BILIRUBIN,TOTAL 0.4 mg/dL (0.2-1.0); BUN - BLOOD UREA NITROGEN 37 mg/dL (6-20); CALCIUM 8.9 mg/dL (8.5-10.3); CARBON DIOXIDE - CO2 27 mmol/L (21-32); CHLORIDE 101 mmol/L (101-111); CHOL/HDL RATIO 2.2 (<5.0); CHOLESTEROL 155 mg/dL; CREATININE 1.2 mg/dL (0.6-1.2); GFR - MDRD 58 (>89); GLUCOSE 118 mg/dL (70-100); HDL CHOLESTEROL 72 mg/dL; LDL CHOLESTEROL,CALCULATED 70 mg/dL; POTASSIUM 4.6 mmol/L (3.5-5.0); SODIUM 135 mmol/L (135-145); TOTAL PROTEIN 6.8 g/dL (6.7-8.2); TRIGLYCERIDES 63 mg/dL; VLDL CHOLESTEROL 13 mg/dL
[2021-05-01 21:21] LABS: ESTIMATED AVERAGE GLUCOSE 134 mg/dL (70-100); HEMOGLOBIN A1c% 6.3 % (4.27-6.07)
== END 2021-05-01 16:47 | disposition home or self-care (01) ==
LOC: LAB.N 16:46
PROVIDERS: ATTEND Family Medicine
DX: E10.9 Type 1 diabetes mellitus without complications (principal)
CPT/HCPCS: 36415; 80053; 80061; 83036; 83721; 85025

== ENCOUNTER 2021-07-12 14:24 | Outpatient (CLI) | payer MEDICARE, BC ==
[2021-07-12 18:16] LABS: BASOPHILS % (AUTO) 0.4 %; EOSINOPHILS # (AUTO) 0.2 10^3/uL (0.0-0.7); EOSINOPHILS % (AUTO) 3.8 %; HCT - HEMATOCRIT 32.2 % (42.0-52.0); HGB - HEMOGLOBIN 10.1 g/dL (14.0-18.0); LYMPHOCYTES # (AUTO) 0.7 10^3/uL (1.5-3.5); LYMPHOCYTES % (AUTO) 13.6 %; MEAN CORPUSCULAR HEMOGLOBIN 30.2 pg (27.0-31.0); MEAN CORPUSCULAR HGB CONC 31.4 g/dL (32.0-36.0); MEAN CORPUSCULAR VOLUME 96.4 fL (80.0-94.0); MEAN PLATELET VOLUME 12.4 fL (7.4-11.4); MONOCYTES # (AUTO) 0.7 10^3/uL (0.0-1.0); NEUTROPHILS # (AUTO) 3.2 10^3/uL (1.5-6.6); NEUTROPHILS % (AUTO) 67.8 %; PLT - PLATELET COUNT 95 10^3/uL (130-450); RED BLOOD COUNT 3.34 10^6/uL (4.70-6.10); RED CELL DISTRIBUTION WIDTH 13.8 % (12.0-15.0); WHITE BLOOD COUNT 4.8 x10^3/uL (4.8-10.8)
[2021-07-12 18:55] LABS: ALBUMIN 4.1 g/dL (3.2-5.5); ALBUMIN/GLOBULIN RATIO 1.4 (1.0-2.2); ALKALINE PHOSPHATASE 48 IU/L (42-121); ALT ALANINE AMINOTRANSFERASE 15 IU/L (10-60); AST ASPARTATE AMINOTRANSFERASE 30 IU/L (10-42); BILIRUBIN,TOTAL 0.5 mg/dL (0.2-1.0); BUN - BLOOD UREA NITROGEN 36 mg/dL (6-20); CALCIUM 8.9 mg/dL (8.5-10.3); CARBON DIOXIDE - CO2 27 mmol/L (21-32); CHLORIDE 106 mmol/L (101-111); CHOL/HDL RATIO 2.5 (<5.0); CHOLESTEROL 163 mg/dL; CREATININE 1.4 mg/dL (0.6-1.2); GFR - MDRD 49 (>89); HDL CHOLESTEROL 65 mg/dL; LDL CHOLESTEROL,CALCULATED 76 mg/dL; LDL/HDL RATIO 1.2 (<3.6); POTASSIUM 4.6 mmol/L (3.5-5.0); SODIUM 140 mmol/L (135-145); TRIGLYCERIDES 110 mg/dL; VLDL CHOLESTEROL 22 mg/dL
[2021-07-12 21:12] LABS: ESTIMATED AVERAGE GLUCOSE 137 mg/dL (70-100); HEMOGLOBIN A1c% 6.4 % (4.27-6.07)
[2021-07-12 21:35] LABS: GLUCOSE 58 mg/dL (70-100)
== END 2021-07-12 14:25 | disposition home or self-care (01) ==
LOC: LAB.N 14:24
PROVIDERS: ATTEND Family Medicine
DX: E11.9 Type 2 diabetes mellitus without complications (principal); E78.5 Hyperlipidemia, unspecified; D69.6 Thrombocytopenia, unspecified
CPT/HCPCS: 36415; 80053; 80061; 83036; 83721; 85025

== ENCOUNTER 2021-07-30 10:00 | Outpatient (CLI) | payer MEDICARE, BC ==
[2021-08-07 13:09] LABS: OVA + PARASITE EXAM Final report (.)
== END 2021-07-30 23:59 | disposition home or self-care (01) ==
LOC: LAB.R 10:00
PROVIDERS: ATTEND Physician Assistant Medical
DX: R19.7 Diarrhea, unspecified (principal)
CPT/HCPCS: 87045; 87046; 87177; 87328; 87427

== ENCOUNTER 2022-04-25 10:04 | Outpatient (CLI) | payer MEDICARE, BC ==
[2022-04-25 10:56] VITALS: BP 138/58
--- NOTE | 2022-04-25 10:56 | SLEEP CARE CONSULTATION ---
Information from patient questionnaire entered by Serenity Hankins. I have reviewed and concur with the information entered by Serenity Hankins. This document represents the service I personally performed and the decisions made by me, Fifi Edwards ARNP. History of Present Illness Service Date and Time: 04/25/2022 1004 Previous diagnosis: Moderate, Obstructive Sleep Apnea-Hypopnea Syndrome AHI: 21.0 (in 2010)(13.6 in 2003) Reason for follow up: annual (LAST SEEN ) Equipment type: CPAP (Dreamstation s/u 10/2015) Equipment obtained from: [employer] (getting supplies) Mask style: Nasal (N20) Mask brand: Resmed Backup mask available: Yes (old mask) Last cushion change: every 3 weeks Prior sleep studies: Yes Year and Where: 2010 - [facility] , 2003 - [facility] additional information: TARUN VICENTE was diagnosed to have moderate, AHI 21.0, obstructive sleep apnea- hypopnea syndrome and returned today for CPAP therapy annual follow-up. Sleep Study - Results Prior sleep studies: Yes Year and Where: 2010 - [facility] , 2003 - [facility] CPAP Compliance Data - Data Reviewed with Patient Average duration of nightly device use: 7 hours 56 minutes Compliance rate %: 96.7 (/30 days used) Current pressure setting (cmH2O): 11-15 Average residual AHI: 2.2 Central apnea: 0.1 Obstructive apnea: 0.6 Hypopnea: 1.5 Average large leak: 10 secs Compliance data discussion: He had an Ibreeze CPAP but he did not like using it because he felt it was too complicated and also too loud. He switched back to his Dreamstation and is more comfortable with it. He is aware of the recall and thinks it was registered. Subjective Patient concerns: reports: nasal congestion, dry mouth, nose, throat. denies: aerophagia, mask discomfort, air blowing in eyes, mask leak noise, condensation in mask/hose, epistaxis Observed to snore while using device: No Current pressure setting perceived as: comfortable On therapy, patient: reports: sleeping better, awakening more refreshed, being more awake and alert during the day, more rested overall, other (can't sleep without it). denies: drowsiness while driving Initial [place] Sleepiness Scale score: 6 (in 2010) Current [place] Sleepiness Scale score: 12 (04/25/22) Allergies and Home Medications Drug allergies reviewed: Yes (as listed in EMR) Home medication list reviewed: Yes (Atorvastatin replaced the simvastatin) Review of Systems Review of systems same as previous: Yes (no changes) Physical Exam Vital signs obtained and entered by: SERENITY Corcoran MA Blood Pressure: 138/58 (LEFT ARM) Cuff size: regular Heart Rate: 89 O2 Saturation: 97 Height: 5 ft 5 in Weight: 187 lb 6.4 oz Body Mass Index: 31.1 BMI Classification: Obese Impression and Plan 1. Obstructive Sleep Apnea-Hypopnea Syndrome, moderate, with good treatment compliance and good apnea control. On CPAP therapy, the patient has better sleep quality and is more rested overall. He states that he stopped using the IBreeze because he moved back into a bedroom and was unable to plug it in. He did not like it because he felt it was too complicated and too loud. He has gone back to using his [employer] Dreamstation. He states he checked it out and has not seen any debris in the device. He feels comfortable using it. He thinks that his Dreamstation was registered. We will check with him and give him a number to call for him to verify. He voiced agreement. Patient's apnea severity and rationale for treatment to reduce apnea, improve sleep quality and reduce cardiovascular and cerebrovascular events was reviewed. I also reviewed the benefit of consistent device use of CPAP for hypertension, diabetes and gastric reflux. 2. Overweight, unspecified. Currently patients BMI is 31.1. Obesity increases the risk of apnea, CPAP pressure requirements and overall health risks especially cardiovascular and diabetes. Thus patient is advised to lose weight. * Continue auto CPAP pressure at 11-15 cmH2O * Update supplies * Notify me if snoring with mask or feeling that the pressure is too much or too little * Attempt to lose weight * Call this office if any problems using CPAP * Return for follow up in 1 year, or sooner if concerns arise Counseling Topics: Spare mask, Weight loss health impact Visit Type: In Office Time Spent with Patient (minutes): 20 Provider Statement: I spent 100% of the Face to Face Visit with the patient with greater than 50% spent counseling the patient and coordination of care.
== END 2022-04-25 10:05 | disposition home or self-care (01) ==
LOC: SC 10:04
PROVIDERS: ATTEND Nurse Practitioner Family
DX: G47.33 Obstructive sleep apnea (adult) (pediatric) (principal); E66.9 Obesity, unspecified; Z68.31 Body mass index [BMI] 31.0-31.9, adult
CPT/HCPCS: 99213; G0463; 99212

== ENCOUNTER 2022-04-29 13:33 | Outpatient (CLI) | payer MEDICARE, BC ==
--- NOTE | 2022-04-29 14:42 | XRAY Report ---
PROCEDURE: Lumbar Spine 2 View INDICATIONS: STRAIN MUSCLE,FASCIA TENDON OF LOWER BACK,HIP PAIN TECHNIQUE: 2 views of the lumbar spine were acquired. COMPARISON: None. FINDINGS: Bones: 5 [id number] vertebrae are present. There is normal bony alignment. No vertebral body compression fractures. No suspicious bony lesions. Multilevel degenerative disc space loss. Lower l umbar facet arthropathy. Soft tissues: Overlying bowel gas pattern is normal. No suspicious soft tissue calcifications. IMPRESSION: Lumbar degenerative change. No evidence acute bony abnormality of the lumbar spine. If clinical suspicion and/or symptoms persist, further assessment with repeat plain films or advanced imaging (e.g., CT, MRI, or bone scan) may be helpful for further assessment. Reviewed by: Rio Olguin MD on 04/29/2022 2:41 PM PST Approved by: Rio Olguin MD on 04/29/2022 2:41 PM [facility] Station ID: [id number]
--- NOTE | 2022-04-29 14:43 | XRAY Report ---
PROCEDURE: Hips 3-4V BILAT INDICATIONS: STRAIN MUSCLE,FASCIA TENDON OF LOWER BACK,HIP PAIN TECHNIQUE: An AP view of the pelvis and frog-leg lateral views of the hips were acquired. COMPARISON: None FINDINGS: Bones: No fractures or dislocations. No suspicious bony lesions. The visualized pelvic ring appear s intact. There is mild right hip degenerative change. There is remote ORIF of the left femur includ ing cannulated screws in the femoral neck. No evidence of hardware failure or loosening. Mild left hi p degenerative change. Soft tissues: No suspicious soft tissue calcifications or masses. IMPRESSION: Mild bilateral hip degenerative change. No evidence acute bony abnormality of the pelvis and bilatera l hips. If clinical suspicion and/or symptoms persist, further assessment with repeat plain films or advanced imaging (e.g., CT, MRI, or bone scan) may be helpful for further assessment. Reviewed by: Rio Olguin MD on 04/29/2022 2:42 PM PST Approved by: Rio Olguin MD on 04/29/2022 2:42 PM PST Station ID: [id number]
== END 2022-04-29 13:34 | disposition home or self-care (01) ==
LOC: DI 13:33
PROVIDERS: ATTEND Physician Assistant
DX: M16.0 Bilateral primary osteoarthritis of hip (principal); M47.816 Spondylosis without myelopathy or radiculopathy, lumbar region; M51.36 Other intervertebral disc degeneration, lumbar region

== ENCOUNTER 2023-02-01 13:06 | Outpatient (CLI) | payer MEDICARE, BC ==
--- NOTE | 2023-02-03 08:24 | MRI Report ---
PROCEDURE: BRAIN WO INDICATIONS: MEMORY LOSS TECHNIQUE: Noncontrast axial T1 spin echo, axial T2 fast spin echo, sagittal and axial FLAIR, coronal T2 fast sp in echo, axial gradient echo, axial diffusion and ADC through the brain. COMPARISON: None. FINDINGS: Image quality: Excellent. CSF Spaces: Basal cisterns are patent. No extra-axial fluid collections. Ventricles are normal in size and shape. Brain: No intracranial masses or hemorrhage. Sims/white matter interface is normal. Moderate diffu se cerebral volume loss is present. Mild degree of patchy high FLAIR signal within the periventricula r and subcortical white matter. Brainstem appears normal. Diffusion-weighted images demonstrate no a cute ischemic insult. No chronic ischemic insults. Normal intravascular flow voids are present. Skull and face: Calvarium has normal marrow signal. Orbits appear normal. Sinuses: Sinuses and mastoids are clear. IMPRESSION: 1. Volume loss and small vessel ischemic disease. 2. No acute process. No recent infarct. Reviewed by: Adamaris Coffey MD on 02/03/2023 8:22 AM [facility] Approved by: Adamaris Coffey MD on 02/03/2023 8:22 AM [facility] Station ID: [id number]
== END 2023-02-01 13:07 | disposition home or self-care (01) ==
LOC: DI 13:06
PROVIDERS: ATTEND Physician Assistant
DX: F03.90 Unspecified dementia, unspecified severity, without behavioral disturbance, psychotic disturbance, mood disturbance, and anxiety (principal)

== ENCOUNTER 2023-04-25 10:12 | Outpatient (CLI) | payer BC, MEDICARE ==
--- NOTE | 2023-04-25 10:57 | Sleep Patient Instructions ---
Sleep Center Visit Summary - Patient Visit Information Reason for Visit: Annual follow-up - Patient Instructions Additional Instructions: You will continue with CPAP therapy with pressure changed to 14-16 cmH2O. A supply prescription will be updated with your DME. We encourage you to continue to try to lose weight. Please follow up with the sleep care office in 1 year. - Clinic Information Contact: [facility] [address] [place] [address] [email or web address] T: [phone]
--- NOTE | 2023-04-25 11:05 | SLEEP CARE CONSULTATION ---
Information from patient questionnaire entered by Serenity Hankins. I have reviewed and concur with the information entered by Serenity Hankins. This document represents the service I personally performed and the decisions made by me, Fifi Edwards ARNP. History of Present Illness Service Date and Time: 04/25/2023 1012 Previous diagnosis: Moderate, Obstructive Sleep Apnea-Hypopnea Syndrome AHI: 21.0 Reason for follow up: annual (LAST SEEN 04/2022) Accompanied by: Spouse (Mayuri) Equipment type: CPAP ([employer] re-certified s/u 10/2015) Equipment obtained from: [facility] (getting supplies) Mask style: Nasal (N20) Mask brand: Resmed Backup mask available: Yes Last cushion change: several weeks Prior sleep studies: Yes Year and Where: 2010 - [facility] , 2003 - [facility] additional information: TARUN VICENTE was diagnosed to have moderate, AHI 21, obstructive sleep apnea- hypopnea syndrome and returned today with spouse, Mayuri, for CPAP therapy annual follow-up. Sleep Study - Results Prior sleep studies: Yes Year and Where: 2010 - [facility] , 2003 - [facility] CPAP Compliance Data - Data Reviewed with Patient Average duration of nightly device use: 5 HRS 42 MINS 27 SECS Compliance rate %: 66.3 (04/22/22-04/21/23; 243/365 days used) Current pressure setting (cmH2O): 11-15 (mean 11.9, avg 14, max 15) Average residual AHI: 4.3 (RERA 1.3) Central apnea: 0.2 Obstructive apnea: 1.8 Hypopnea: 2.3 Average large leak: 7 mins 23 secs Subjective Missed days of use due to: reports: travel (forgot power cord) Patient concerns: reports: mask leak noise, nasal congestion (from recent cold). denies: aerophagia, mask discomfort, air blowing in eyes, condensation in mask/hose, dry mouth, nose, throat, epistaxis Observed to snore while using device: No Current pressure setting perceived as: comfortable On therapy, patient: reports: sleeping better, awakening more refreshed, being more awake and alert during the day, more rested overall. denies: drowsiness while driving (not able to drive anymore) Initial [place] Sleepiness Scale score: 6 (in 2011) Current [place] Sleepiness Scale score: 8 (04/25/23) Allergies and Home Medications Known drug allergies: Yes (as listed) Drug allergies reviewed: Yes Home medication list reviewed: Yes (generic Namenda) Allergy and home medication list: Allergies Penicillins Allergy (Severe, Verified 04/23/23 11:47) Hives lisinopril Allergy (Intermediate, Verified 04/23/23 11:47) cough guaifenesin Allergy (Unknown, Verified 04/23/23 11:47) Hives metronidazole [From Flagyl] Allergy (Unknown, Verified 04/23/23 11:47) Itching Metronidazole HCl * [From Flagyl] Allergy (Unknown, Verified 04/23/23 11:47) Unknown Review of Systems Review of systems same as previous: No (ALZHEIMERS) Physical Exam Vital signs obtained and entered by: SERENITY Corcoran MA Blood Pressure: 163/55 (LEFT ARM) Cuff size: regular Heart Rate: 50 O2 Saturation: 99 Height: 5 ft 5 in Weight: 189 lb 3.2 oz Body Mass Index: 31.4 BMI Classification: Obese Impression and Plan 1. Obstructive Sleep Apnea-Hypopnea Syndrome, moderate, with fair treatment compliance and good apnea control. On CPAP therapy, the patient has better sleep quality and is more rested overall. He has a new diagnosis of Alzheimer's and so he cannot drive anymore. He was accompanied by his Mayuri today who says that he is snoring when using his CPAP. To resolve snore, the CPAP pressure will be changed to 14-16 cmH20. Patient advised to contact this office if pressure change uncomfortable or if pressure change does not resolve snore. He states he occasionally gets some masslike noise that bothers his but he normally does not hear it. Patient's apnea severity and rationale for treatment to reduce apnea, improve sleep quality and reduce cardiovascular and cerebrovascular events was reviewed. I also reviewed the benefit of consistent device use of CPAP for hypertension, diabetes and gastric reflux. 2. Obesity, unspecified. Currently patients BMI is 31.4. Obesity increases the risk of apnea, CPAP pressure requirements and overall health risks especially cardiovascular and diabetes. Thus patient is advised to lose weight. * Change auto CPAP pressure to 14-16 cmH2O * Update supply prescription * Notify me if snoring with mask or feeling that the pressure is too much or too little * Attempt to lose weight * Call this office if any problems using CPAP * Return for follow up in 12 months, or sooner if concerns arise Counseling Topics: Spare mask, Weight loss health impact Prescriptions: Device supplies Follow up with Sleep Care in: 1 year Visit Type: In Office Time Spent with Patient (minutes): 28 Provider Statement: I spent 100% of the Face to Face Visit with the patient with greater than 50% spent counseling the patient and coordination of care.
[2023-04-25 11:07] VITALS: BP 163/55; O2SAT 99
== END 2023-04-25 10:13 | disposition home or self-care (01) ==
LOC: SC 10:12
PROVIDERS: ATTEND Nurse Practitioner Family
DX: G47.33 Obstructive sleep apnea (adult) (pediatric) (principal); E66.9 Obesity, unspecified; Z68.31 Body mass index [BMI] 31.0-31.9, adult
CPT/HCPCS: 99213; G0463; 99212

== ENCOUNTER 2023-06-29 06:58 | Outpatient (CLI) | payer MEDICARE | END 2023-06-29 23:59 | disposition EMS.NT | LOC: EMS 06:58 | DX: E11.649 Type 2 diabetes mellitus with hypoglycemia without coma (principal); Z79.4 Long term (current) use of insulin ==

== ENCOUNTER 2023-08-08 12:57 | Outpatient (CLI) | payer MEDICARE | END 2023-08-08 12:58 | disposition home or self-care (01) | LOC: LAB.N 12:57 | PROVIDERS: ATTEND Physician Assistant | DX: D64.9 Anemia, unspecified (principal); G30.9 Alzheimer's disease, unspecified; F02.80 Dementia in other diseases classified elsewhere, unspecified severity, without behavioral disturbance, psychotic disturbance, mood disturbance, and anxiety; C61 Malignant neoplasm of prostate | CPT/HCPCS: 36415; 82607; 82746; 83090; 84153 ==